=== PATIENT | male | born 1945 | race Caucasian/White ===

== ENCOUNTER → 2017-04-21 | Outpatient (CLI) | payer MEDICARE, OTHER ==
[~2017-04-21] MED LIST: ACET325S8 PO; AMBI10TA PO; AMBI5TAB PO; ASPI81TA82 PO; CARV6.25 PO; CELE200C PO; ECASA81 PO; ENBR50IN2 SQ; ENBR50IN3 SC; FOLI1 PO; FOLI1TAB6 PO; FOLI800T PO; GLUC15009 PO; GLUC500C3 PO; HYDR-3533 PO; HYDR-3583 PO; KRIL1CAP16 PO; LISI-363 PO; LISI-515 PO; MEGA RED PO; METH2.5 PO; METH2.5T PO; NITR0.4S SL; OCUVTAB PO; OPTI400C PO; PLAV75TA PO; PLAV75TA29 PO; ROSU20 PO; ROSU40 PO; SULF500T3 PO; SULF500T35 PO; TYLE325T PO; VIAG50TA PO; WALKER WHEELS/F1 MIS; ZOFR4TAB3 PO; [UNRECOGNIZED DRUG - OTHER] PO
--- NOTE | 2017-04-21 16:29 | RADRPT ---
EXAM DATE/TIME: 04/21/2017 15:36 [facility] COMPARISON: No previous studies available for comparison. INDICATIONS : Evaluate for pneumothorax, pneumonia or communicable disease. Pre-op, cervical spine fusion. MEDICAL HISTORY : Hypertension. Hypercholesterolemia. Cardiovascular disease. SURGICAL HISTORY : Cholecystectomy. Cardiac stent ENCOUNTER: Initial ACUITY: 1 day PAIN SCORE: 0/10 LOCATION: Bilateral chest FINDINGS: PA and lateral views of the chest demonstrate a normal-sized cardiac silhouette. There is no effusion , consolidation, or pneumothorax. The bones and soft tissues demonstrate no acute abnormality. CONCLUSION: No acute cardiopulmonary abnormality is identified. Stanislaw Schafer MD on April 21, 2017 at 16:27 Board Certified Radiologist. This report was verified electronically.
== END ==
LOC: CPRE 14:32
PROVIDERS: ATTEND Neurological Surgery
DX: Z01.812 Encounter for preprocedural laboratory examination (principal); Z01.811 Encounter for preprocedural respiratory examination; Z01.818 Encounter for other preprocedural examination; M79.609 Pain in unspecified limb
CPT/HCPCS: 71046; 87640; 87641

== ENCOUNTER 2017-05-04 20:25 | Emergency (ER) | payer MEDICARE, OTHER ==
[~2017-05-04] VITALS: Ht 182.9 cm; Wt 112.0 kg
[~2017-05-04 20:25] MED LIST changes: -ACET325S8 PO; -AMBI10TA PO; -ASPI81TA82 PO; -CELE200C PO; -ECASA81 PO; -ENBR50IN3 SC; -FOLI1 PO; -FOLI800T PO; -GLUC500C3 PO; -HYDR-3533 PO; -KRIL1CAP16 PO; -LISI-363 PO; -MEGA RED PO; -METH2.5 PO; -OCUVTAB PO; -OPTI400C PO; -PLAV75TA PO; -PLAV75TA29 PO; -ROSU20 PO; -ROSU40 PO; -SULF500T35 PO; -ZOFR4TAB3 PO; -[UNRECOGNIZED DRUG - OTHER] PO
[2017-05-04 20:35] VITALS: BP 127/69; PULSE 105; RESP 20; TEMP 98; O2SAT 97
[2017-05-04] MEDS ORDERED: PLAV75TA29 PO (21:16)
[2017-05-04 23:28] LABS: BILIRUBIN, URINE NEG (NEG); BLOOD, URINE NEG (NEG); GLUCOSE,URINE NEG (NEG); KETONE, URINE TRACE mg/dL (NEG); NITRITE,URINE NEG (NEG); PH, URINE 5.5 (5.0-8.5); URINE LEUKOCYTE ESTERASE NEG (NEG)
[2017-05-04 23:31] LABS: AUTOMATED NEUTROPHIL # 10.6 TH/MM3 (1.8-7.7); BASOPHIL # 0.6 TH/MM3 (0-0.2); BASOPHIL % 4.1 % (0.0-2.0); EOSINOPHIL % 0.2 % (0.0-4.0); HEMATOCRIT 42.8 % (39.0-51.0); HEMOGLOBIN 14.2 GM/DL (13.0-17.0); LYMPHOCYTE # 1.7 TH/MM3 (1.0-4.8); MEAN CELL VOLUME 95.6 FL (80.0-100.0); MEAN CORPUSCULAR HEMOGLOBIN 31.6 PG (27.0-34.0); MEAN CORPUSCULAR HGB CONC 33.1 % (32.0-36.0); MEAN PLATELET VOLUME 7.7 FL (7.0-11.0); MONO % 6.6 % (0.0-8.0); MONOCYTE # 0.9 TH/MM3 (0-0.9); NEUT % 77.1 % (16.0-70.0); PLATELET COUNT 332 TH/MM3 (150-450); RED BLOOD COUNT 4.48 MIL/MM3 (4.50-5.90); RED CELL DISTRIBUTION WIDTH 12.3 % (11.6-17.2); WHITE BLOOD COUNT 13.8 TH/MM3 (4.0-11.0)
[2017-05-04 23:32] VITALS: BP 105/67; PULSE 85; RESP 18; O2SAT 97
[2017-05-04 23:34] LABS: RBC, URINE 0-2 /hpf (0-3); SQUAMOUS EPITHELIAL CELL URINE 0-5 /hpf (0-5); URINE COLOR AMBER (YELLW/STRAW); WBC, URINE 0-2 /hpf (0-5)
[2017-05-04 23:41] LABS: CALCIUM 8.6 MG/DL (8.5-10.1)
[2017-05-04 23:42] LABS: BICARBONATE 23.3 MEQ/L (21.0-32.0)
[2017-05-04 23:45] LABS: CREATININE 0.84 MG/DL (0.60-1.30)
--- NOTE | 2017-05-05 00:03 | PD ---
HPI Chief Complaint: GI Complaint Time Seen by Provider: 22:48 Travel History International Travel<30 days: No Contact w/Intl Traveler<30days: No Traveled to known affect area: No History of Present Illness HPI The patient is a 71-year-old male that has been unable to urinate since 7 AM. He also has had constipation and his stride fleets enemas 2 at home, one at 5 PM and 1 at 6 PM. He has never had inability to urinate in the past. He does not have a history of benign prostatic hypertrophy. He has never seen a urologist. He did take Dulcolax tablets yesterday as well. He had a cervical fusion on the and has been taking hydrocodone tablets. He states he feels like his bladder is going to explode. The patient does not have a history of nocturia, straining to urinate or any other prostate symptoms. His PSAs have been normal. 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, 1 stent) High Cholesterol: Yes Chest Pain: Yes ([place] in july 2004) Congestive Heart Failure: No Coronary Artery Disease: Yes Diabetes: No Endocrine: No Genitourinary: No Headaches: Yes Hepatitis: No Hiatal Hernia: No Hypertension: Yes (PT STATES ON 05/03/15 "NEVER DIAGNOSED WITH IT") Immune Disorder: Yes (PSORIATIC ARTHRITIS) Implanted Vascular Access Dvce: Yes Medical other: No Musculoskeletal: Yes (ARTHRITIS) Neurologic: Yes (BILAT WEAKNESS/TINGLING/NUMBNESS ARMS & LEGS) Psychiatric: No Reproductive: No Respiratory: No Myocardial Infarction: Yes (JULY 2004) Pancreatitis: Yes Sickle Cell Disease: No Thyroid Disease: No Influenza Vaccination: Yes Past Surgical History Abdominal Surgery: Yes ([facility] about 25 years ago) AICD: No Body Medical Devices: stent cardiac Cardiac Surgery: Yes (STENT IN HEART) Cholecystectomy: Yes Coronary Stent: Yes (X1: 2004) Ear Surgery: No Endocrine Surgery: No Eye Surgery: Yes (R eye, debree removed) Genitourinary Surgery: No Joint Replacement: No Neurologic Surgery: Yes (DR CROWLEY: C3-C4 TITANIUM PLACED, BONE CADAVER 04/24/17) Oral Surgery: Yes (tooth extraction with section of bone, no post putin) Pacemaker: No Thoracic Surgery: No Other Surgery: Yes (SKIN) Social History Alcohol Use: Yes (RARELY) Tobacco Use: No (QUIT: 2000) Substance Use: No Allergies-Medications (Allergen,Severity, Reaction): Coded Allergies: No Known Allergies (Unverified Allergy, Unknown, 05/04/17) Reported Meds & Prescriptions Reported Meds & Active Scripts Active Hydrocodone-Acetamin 10-325 mg (Hydrocodone/Acetaminophen) 10 Mg-325 Mg Tablet 1 Tab PO Q4H PRN Walker with Front Wheels (Device) 1 Mis Mis Ea .XX DIRECTED Reported Plavix (Clopidogrel Bisulfate) 75 Mg Tab 75 Mg PO DAILY Tylenol (Acetaminophen) 325 Mg Tab 325-650 Mg PO ONCE Folic Acid 1 Mg Tablet 1 Tab PO DAILY Viagra (Sildenafil Citrate) 50 Mg Tab 50 Mg PO DAILY PRN Enbrel PF Inj (Etanercept) 50 mg/ml Syr 50 Mg SQ Q7D Methotrexate 2.5 Mg Tab 7 Tab PO Q7D MONDAY OR MONDAY MORNING Glucosamine 1,500 Mg Tab 1,500 Mg PO BID Nitrostat SL (Nitroglycerin) 0.4 Mg Subl 0.4 Mg SL DIRECTED PRN 1 tablet under the tongue as needed for chest pain. Repeat every 5 minutes for a total of 3 DOSES or call 911 if NO relief. Ambien (Zolpidem Tartrate) 5 Mg Tab 5 Mg PO HS PRN Sulfasalazine 500 Mg Tab 1,500 Mg PO BID Lisinopril 20 Mg Tab 20 Mg PO HS Coreg (Carvedilol) 6.25 Mg Tab 6.25 Mg PO BID Review of Systems Except as stated in HPI: all other systems reviewed are Neg Physical Exam Narrative GENERAL: The patient is alert, oriented 3 in moderate to severe distress with his bladder discomfort. His vital signs show heart rate of 105 but are otherwise normal. SKIN: Focused skin assessment warm/dry. No skin rash is seen except some redness around the rectum. HEAD: Atraumatic. Normocephalic. EYES: Pupils equal and round. No scleral icterus. No injection or drainage. ENT: No nasal bleeding or discharge. Mucous membranes pink and moist. NECK: Trachea midline. No JVD. CARDIOVASCULAR: Regular rate and rhythm. No murmur appreciated. RESPIRATORY: No accessory muscle use. Clear to auscultation. Breath sounds equal bilaterally. GASTROINTESTINAL: Abdomen soft, non-tender, nondistended. Hepatic and splenic margins not palpable. No guarding or rebound is present. The bladder is grossly distended and minimal causes pressure over the bladder discomfort. MUSCULOSKELETAL: No obvious deformities. No clubbing. No cyanosis. No edema. NEUROLOGICAL: Awake and alert. No obvious cranial nerve deficits. Motor grossly within normal limits. Normal speech. PSYCHIATRIC: Appropriate mood and affect; insight and judgment normal. RECTAL EXAM: The stool is brown and guaiac negative. There are fecal impactions present in the rectum and these were broken up. The patient will now get a fleets enema. Data Data Last Documented VS Vital Signs Date Time Temp Pulse Resp B/P (MAP) Pulse Ox O2 Delivery O2 Flow Rate FiO2 05/04/17 23:32 85 18 105/67 (80) 97 Room Air 05/04/17 20:35 98.0 Orders Orders Urinary Catheter Insert/Apply (05/04/17 22:52) Complete Blood Count With Diff (05/04/17 22:53) Basic Metabolic Panel (Bmp) (05/04/17 22:53) Urinalysis - C+S If Indicated (05/04/17 22:53) Fleets Enema (Adult) (Fleets Enema (Adul (05/05/17 00:15) Labs Laboratory Tests Test 05/04/17 23:00 05/04/17 23:10 Urine Color MINOO Urine Turbidity CLEAR Urine pH 5.5 Urine Specific [place] 1.025 Urine Protein NEG mg/dL Urine Glucose (UA) NEG mg/dL Urine Ketones TRACE mg/dL Urine Occult Blood NEG Urine Nitrite NEG Urine Bilirubin NEG Urine Urobilinogen 0.2 MG/DL Urine Leukocyte Esterase NEG Urine RBC 0-2 /hpf Urine WBC 0-2 /hpf Urine Squamous Epithelial Cells 0-5 /hpf Urine Bacteria NONE /hpf Microscopic Urinalysis Comment CULT NOT INDICATED White Blood Count 13.8 TH/MM3 Red Blood Count 4.48 MIL/MM3 Hemoglobin 14.2 GM/DL Hematocrit 42.8 % Mean Corpuscular Volume 95.6 FL Mean Corpuscular Hemoglobin 31.6 PG Mean Corpuscular Hemoglobin Concent 33.1 % Red Cell Distribution Width 12.3 % Platelet Count 332 TH/MM3 Mean Platelet Volume 7.7 FL Neutrophils (%) (Auto) 77.1 % Lymphocytes (%) (Auto) 12.0 % Monocytes (%) (Auto) 6.6 % Eosinophils (%) (Auto) 0.2 % Basophils (%) (Auto) 4.1 % Neutrophils # (Auto) 10.6 TH/MM3 Lymphocytes # (Auto) 1.7 TH/MM3 Monocytes # (Auto) 0.9 TH/MM3 Eosinophils # (Auto) 0.0 TH/MM3 Basophils # (Auto) 0.6 TH/MM3 CBC Comment DIFF FINAL Differential Comment Blood Urea Nitrogen 24 MG/DL Creatinine 0.84 MG/DL Random Glucose 114 MG/DL Calcium Level 8.6 MG/DL Sodium Level 140 MEQ/L Potassium Level 3.3 MEQ/L Chloride Level 108 MEQ/L Carbon Dioxide Level 23.3 MEQ/L Anion Gap 9 MEQ/L Estimat Glomerular Filtration Rate 90 ML/MIN MDM Medical Decision Making Medical Screen Exam Complete: Yes Emergency Medical Condition: Yes Medical Record Reviewed: Yes Interpretation(s) The CBC shows a white count of 13,800 but is otherwise unremarkable. The basic metabolic profile shows a BUN of 24 and potassium of 3.3 but is otherwise normal. The urinalysis shows minoo color with trace ketones but is otherwise normal and cultures not indicated. After catheterization, the patient had 1000 cc of urine in his bladder. Differential Diagnosis Bladder atony, constipation, urethral obstruction, fecal impaction Narrative Course The patient may have had bladder atony. The combination of surgery, medications like hydrocodone may have caused this. He also might have prosthetic urethral obstruction. He has never had this problem before however. The patient also may have some constipation related to the narcotic pain medications slight surgery. It is now 0104 and the patient has passed stool and has passed 1000 cc of urine into the catheter. Diagnosis Primary Impression: Bladder atony Additional Impression: Constipation Additional Instructions: As we discussed, call today to set up an appointment with urology. They will likely take the catheter out at the time of the appointment. Disposition: 01 DISCHARGE HOME Condition: Stable Jose Durbin MD May 05, 2017 00:03
[2017-05-05] MEDS ORDERED: SOD PHOSPHATE/SOD BIPHOSPHATE (ADULT) ENEMA 133ML RECTAL ONE (00:15)
[2017-05-05 00:58] VITALS: BP 114/70; PULSE 90; RESP 16; O2SAT 96
== END 2017-05-05 02:03 | disposition home or self-care (01) ==
LOC: PHED 20:25
DX: N31.2 Flaccid neuropathic bladder, not elsewhere classified (principal); K59.00 Constipation, unspecified; I10 Essential (primary) hypertension; I25.10 Atherosclerotic heart disease of native coronary artery without angina pectoris; Z79.02 Long term (current) use of antithrombotics/antiplatelets; Z87.891 Personal history of nicotine dependence
CPT/HCPCS: 51702; 80048; 81001; 85025

== ENCOUNTER 2017-05-12 01:41 | Inpatient (IN) | payer MEDICARE, OTHER ==
[~2017-05-12] VITALS: Ht 182.9 cm; Wt 119.0 kg
[2017-05-12] VITALS (19 sets, daily range): BP systolic 98–148; BP diastolic 45–84; PULSE 43–54; RESP 16–20; TEMP 98.2–101; O2SAT 93–99
[~2017-05-12 01:41] MED LIST changes: +PLAV75TA29 PO
[2017-05-12 02:46] LABS: AUTOMATED NEUTROPHIL # 19.2 TH/MM3 (1.8-7.7); BASOPHIL # 0.3 TH/MM3 (0-0.2); BASOPHIL % 1.2 % (0.0-2.0); HEMATOCRIT 39.1 % (39.0-51.0); HEMOGLOBIN 12.9 GM/DL (13.0-17.0); LYMPH % 3.9 % (9.0-44.0); LYMPHOCYTE # 0.8 TH/MM3 (1.0-4.8); MEAN CELL VOLUME 96.3 FL (80.0-100.0); MEAN CORPUSCULAR HEMOGLOBIN 31.8 PG (27.0-34.0); MEAN PLATELET VOLUME 7.9 FL (7.0-11.0); MONO % 2.8 % (0.0-8.0); MONOCYTE # 0.6 TH/MM3 (0-0.9); NEUT % 92.1 % (16.0-70.0); PLATELET COUNT 238 TH/MM3 (150-450); RED BLOOD COUNT 4.06 MIL/MM3 (4.50-5.90); RED CELL DISTRIBUTION WIDTH 12.7 % (11.6-17.2)
[2017-05-12 02:52] LABS: CHLORIDE 107 MEQ/L (98-107); SODIUM (NA) 138 MEQ/L (136-145)
[2017-05-12 02:55] LABS: ALBUMIN 2.9 GM/DL (3.4-5.0); BICARBONATE 22.6 MEQ/L (21.0-32.0); CALCIUM 8.6 MG/DL (8.5-10.1); GLUCOSE,RANDOM 183 MG/DL (74-106)
[2017-05-12 02:56] LABS: BLOOD UREA NITROGEN 25 MG/DL (7-18)
[2017-05-12 02:58] LABS: ALT (GPT) 23 U/L (12-78); AST (GOT) 18 U/L (15-37)
[2017-05-12 02:59] LABS: GLOMERULAR FILTRATION RATE 50 ML/MIN (>89)
[2017-05-12 03:00] LABS: TOTAL BILIRUBIN ADULT 0.9 MG/DL (0.2-1.0); TOTAL PROTEIN 6.7 GM/DL (6.4-8.2)
[2017-05-12 03:01] LABS: ALKALINE PHOSPHATASE 84 U/L (45-117)
[2017-05-12 03:03] LABS: TROPONIN I LESS THAN 0.02 NG/ML (0.02-0.05)
--- NOTE | 2017-05-12 04:27 | PD ---
HPI Chief Complaint: General Weakness Time Seen by Provider: 04:15 Travel History International Travel<30 days: No Contact w/Intl Traveler<30days: No Traveled to known affect area: No History of Present Illness HPI The patient is a 71-year-old male that yesterday afternoon started with a fever and generalized weakness. At home, the fever was 103.5. He denies any cough. The patient came in last week with a hydrocodone induced bladder atony and required catheterization. He saw Dr. Tipton in another catheter was put in and removed. He denies any flank pain but does have frequency of urination now. He was put on Flomax but this was discontinued 2 days ago when the catheter came out. 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, 1 stent) High Cholesterol: Yes Chest Pain: Yes ([place] in july 2004) Congestive Heart Failure: No Coronary Artery Disease: Yes Diabetes: No Diminished Hearing: No Endocrine: No Genitourinary: No Headaches: Yes Hepatitis: No Hiatal Hernia: No Hypertension: Yes (PT STATES ON 05/03/15 "NEVER DIAGNOSED WITH IT") Immune Disorder: Yes (PSORIATIC ARTHRITIS) Implanted Vascular Access Dvce: Yes Musculoskeletal: Yes (ARTHRITIS) Neurologic: Yes (BILAT WEAKNESS/TINGLING/NUMBNESS ARMS & LEGS) Psychiatric: No Reproductive: No Respiratory: No Immunizations Current: Yes Myocardial Infarction: Yes (JULY 2004) Pancreatitis: Yes Sickle Cell Disease: No Thyroid Disease: No Tetanus Vaccination: < 5 Years Past Surgical History Abdominal Surgery: Yes ([facility] about 25 years ago) AICD: No Body Medical Devices: stent cardiac Cardiac Surgery: Yes (STENT IN HEART) Cholecystectomy: Yes Coronary Stent: Yes (X1: 2004) Ear Surgery: No Endocrine Surgery: No Eye Surgery: Yes (R eye, debree removed) Genitourinary Surgery: No Joint Replacement: No Neurologic Surgery: Yes (DR CROWLEY: C3-C4 TITANIUM PLACED, BONE CADAVER 04/24/17) Oral Surgery: Yes (tooth extraction with section of bone, no post putin) Pacemaker: No Thoracic Surgery: No Other Surgery: Yes (SKIN) Social History Alcohol Use: Yes (RARELY) Tobacco Use: No (QUIT: 2000) Substance Use: No Allergies-Medications (Allergen,Severity, Reaction): Coded Allergies: No Known Allergies (Unverified Allergy, Unknown, 05/12/17) Reported Meds & Prescriptions Reported Meds & Active Scripts Active Reported Tylenol (Acetaminophen) 325 Mg Tab 325-650 Mg PO ONCE Folic Acid 1 Mg Tablet 1 Tab PO DAILY Viagra (Sildenafil Citrate) 50 Mg Tab 50 Mg PO DAILY PRN Enbrel PF Inj (Etanercept) 50 mg/ml Syr 50 Mg SQ Q7D Methotrexate 2.5 Mg Tab 7 Tab PO Q7D MONDAY OR MONDAY MORNING Nitrostat SL (Nitroglycerin) 0.4 Mg Subl 0.4 Mg SL DIRECTED PRN 1 tablet under the tongue as needed for chest pain. Repeat every 5 minutes for a total of 3 DOSES or call 911 if NO relief. Ambien (Zolpidem Tartrate) 5 Mg Tab 5 Mg PO HS PRN Sulfasalazine 500 Mg Tab 1,500 Mg PO BID Lisinopril 20 Mg Tab 20 Mg PO HS Coreg (Carvedilol) 6.25 Mg Tab 6.25 Mg PO BID Review of Systems Except as stated in HPI: all other systems reviewed are Neg Physical Exam Narrative GENERAL: The patient is alert, oriented 3 in slight apparent distress with his generalized weakness. His temperature is 99.2 with heart rate of 44 and oximetry 94% and his blood pressure is normal. SKIN: Focused skin assessment warm/dry. No skin rash is seen. HEAD: Atraumatic. Normocephalic. EYES: Pupils equal and round. No scleral icterus. No injection or drainage. ENT: No nasal bleeding or discharge. Mucous membranes pink and moist. Throat is clear and tympanic membranes are clear. NECK: Trachea midline. No JVD. He has a cervical collar on because of cervical stenosis. CARDIOVASCULAR: Regular rate and rhythm. No murmur appreciated. RESPIRATORY: No accessory muscle use. Clear to auscultation. Breath sounds equal bilaterally. GASTROINTESTINAL: Abdomen soft, non-tender, nondistended. Hepatic and splenic margins not palpable. There is no flank tenderness present and there is no guarding or rebound present. MUSCULOSKELETAL: No obvious deformities. No clubbing. No cyanosis. No edema. NEUROLOGICAL: Awake and alert. No obvious cranial nerve deficits. Motor grossly within normal limits. Normal speech. PSYCHIATRIC: Appropriate mood and affect; insight and judgment normal. Data Data Last Documented VS Vital Signs Date Time Temp Pulse Resp B/P (MAP) Pulse Ox O2 Delivery O2 Flow Rate FiO2 05/12/17 06:13 50 16 142/49 (80) 64 123/57 (79) 49 147/84 (105) 05/12/17 05:58 95 Room Air 05/12/17 04:36 98.2 Orders Orders Complete Blood Count With Diff (05/12/17 02:24) Comprehensive Metabolic Panel (05/12/17 02:24) Troponin I (05/12/17 02:24) Electrocardiogram (05/12/17 ) Urinalysis - C+S If Indicated (05/12/17 02:52) Influenzae A/B Antigen (05/12/17 02:52) Lactic Acid Sepsis Protocol (05/12/17 04:15) Blood Culture (05/12/17 04:15) Sodium Chlor 0.9% 1000 Ml Inj (Ns 1000 M (05/12/17 04:30) Chest, Pa & Lat (05/12/17 04:27) Orthostatic Vital Signs (05/12/17 05:49) Ceftriaxone Inj (Rocephin Inj) (05/12/17 06:30) Azithromycin Inj (Zithromax Inj) (05/12/17 06:30) Urine Culture (05/12/17 06:10) Labs Laboratory Tests Test 05/12/17 02:30 05/12/17 04:20 05/12/17 06:10 White Blood Count 21.0 TH/MM3 Red Blood Count 4.06 MIL/MM3 Hemoglobin 12.9 GM/DL Hematocrit 39.1 % Mean Corpuscular Volume 96.3 FL Mean Corpuscular Hemoglobin 31.8 PG Mean Corpuscular Hemoglobin Concent 33.0 % Red Cell Distribution Width 12.7 % Platelet Count 238 TH/MM3 Mean Platelet Volume 7.9 FL Neutrophils (%) (Auto) 92.1 % Lymphocytes (%) (Auto) 3.9 % Monocytes (%) (Auto) 2.8 % Eosinophils (%) (Auto) 0.0 % Basophils (%) (Auto) 1.2 % Neutrophils # (Auto) 19.2 TH/MM3 Lymphocytes # (Auto) 0.8 TH/MM3 Monocytes # (Auto) 0.6 TH/MM3 Eosinophils # (Auto) 0.0 TH/MM3 Basophils # (Auto) 0.3 TH/MM3 CBC Comment DIFF FINAL Differential Comment Blood Urea Nitrogen 25 MG/DL Creatinine 1.40 MG/DL Random Glucose 183 MG/DL Total Protein 6.7 GM/DL Albumin 2.9 GM/DL Calcium Level 8.6 MG/DL Alkaline Phosphatase 84 U/L Aspartate Amino Transf (AST/SGOT) 18 U/L Alanine Aminotransferase (ALT/SGPT) 23 U/L Total Bilirubin 0.9 MG/DL Sodium Level 138 MEQ/L Potassium Level 3.5 MEQ/L Chloride Level 107 MEQ/L Carbon Dioxide Level 22.6 MEQ/L Anion Gap 8 MEQ/L Estimat Glomerular Filtration Rate 50 ML/MIN Troponin I LESS THAN 0.02 NG/ML Lactic Acid Level 2.5 mmol/L Urine Color MINOO Urine Turbidity CLOUDY Urine pH 5.0 Urine Specific [place] GREATER/EQUAL 1.030 Urine Protein 300 OR GREATER mg/dL Urine Glucose (UA) 100 mg/dL Urine Ketones TRACE mg/dL Urine Occult Blood SMALL Urine Nitrite POS Urine Bilirubin MOD Urine Urobilinogen 1.0 MG/DL Urine Leukocyte Esterase SMALL Urine RBC 4-9 /hpf Urine WBC INNUM /hpf Urine WBC Clumps FEW Urine Squamous Epithelial Cells 6-8 /hpf Urine Bacteria MANY /hpf Microscopic Urinalysis Comment CULTURE INDICATED MDM Medical Decision Making Medical Screen Exam Complete: Yes Emergency Medical Condition: Yes Medical Record Reviewed: Yes Interpretation(s) The chest x-ray shows patchy consolidation in the right anterior middle lobe or lingula only seen on the lateral view. The CBC shows white count of 21,000 with 92% neutrophils. The complete metabolic profile shows a BUN of 25, creatinine 1.4, GFR 50, glucose of 183 with lactic acid of 2.5 and albumin 2.9. The troponin I is less than 0.02. The influenza A/B antigen is negative for flu a and flu B. The urine shows minoo color, cloudy turbidity, 300 or greater protein, 100 glucose, trace ketones with moderate bilirubin and small blood with positive nitrate and small leukocyte esterase and innumerable white cells with few white cell clampings and many bacteria and culture is indicated. Differential Diagnosis Urosepsis, sepsis, dehydration, electrolyte disorder, pneumonia-unlikely Narrative Course The patient almost passed out in x-ray. Apparently, he fell to the floor and had to be picked up. He did not injure himself during the fall. Because of the patient's slight renal insufficiency we gave him Rocephin and Zithromax. The patient will be admitted to Dr. Jamil. Sepsis Criteria SIRS Criteria (2 or more): WBC > 51336, < 4000 or > 10% bands Diagnosis Primary Impression: Sepsis Additional Impressions: Urinary tract infection Right middle lobe pneumonia Admitting Information Admitting Physician Requests: Admit Jose Durbin MD May 12, 2017 04:27
[2017-05-12] MEDS: SODIUM CHLOR 0.9% 1000 ML INJ 1,000 ML IV SCH ×5 (04:34→20:28)
[2017-05-12 04:59] LABS: LACTIC ACID SEPSIS PROTOCOL 2.5 mmol/L (0.4-2.0)
--- NOTE | 2017-05-12 05:20 | RADRPT ---
EXAM DATE/TIME: 05/12/2017 04:34 [facility] COMPARISON: CHEST PA & LAT, April 21, 2017, 15:36. INDICATIONS : Weakness. Fever. MEDICAL HISTORY : Cardiovascular disease. SURGICAL HISTORY : Coronary artery stent. ENCOUNTER: Initial ACUITY: 2 days PAIN SCORE: 0/10 LOCATION: chest FINDINGS: PA and lateral views of the chest. Mild linear opacity at the lung bases suggesting atelectasis on th e frontal view. Patchy consolidation versus atelectasis in the anterior lung base on the lateral view . This finding is new. No evidence of pleural effusion or pneumothorax. Cardiomediastinal silhouette within normal limits. CONCLUSION: Patchy consolidation versus atelectasis in the anterior right middle lobe or lingula seen on the late ral view. Vasyl Diamond MD on May 12, 2017 at 5:15 Board Certified Radiologist. This report was verified electronically.
[2017-05-12] MEDS ORDERED: LEVOFLOXACIN 750 MG PREMIX INJ 150 ML IV ONE (06:15)
[2017-05-12 06:17] LABS: BILIRUBIN, URINE MOD (NEG); BLOOD, URINE SMALL (NEG); GLUCOSE,URINE 100 mg/dL (NEG); KETONE, URINE TRACE mg/dL (NEG); NITRITE,URINE POS (NEG); URINE LEUKOCYTE ESTERASE SMALL (NEG)
[2017-05-12 06:19] LABS: URINE COLOR AMBER (YELLW/STRAW)
[2017-05-12 06:21] LABS: WBC, URINE INNUM /hpf (0-5)
[2017-05-12 06:22] LABS: WHITE BLOOD CELL CLUMPS FEW
[2017-05-12 06:23] LABS: BACTERIA, URINE MANY /hpf
[2017-05-12] MEDS ORDERED: cefTRIAXone INJ 1,000 MG in SODIUM CHLORIDE 0.9% INJ 100 ML IV ONE (06:30)
[2017-05-12] MEDS ORDERED: AZITHROMYCIN INJ 500 MG in SODIUM CHLOR 0.9% 250 ML INJ 250 ML IV ONE (06:30)
[2017-05-12] MEDS ORDERED: RESP: ALBUTEROL 2.5 MG/IPRATROPIUM 0.5 MG NEB (PRN) INH (06:45)
[2017-05-12] MEDS ORDERED: SODIUM CHLORIDE 0.9% FLUSH 10 ML FLUSH IV FLUSH PRN (06:45)
[2017-05-12] MEDS ORDERED: ONDANSETRON HCL 4 MG/2 ML VIAL IV PUSH PRN (06:45)
[2017-05-12] MEDS ORDERED: HEPARIN SODIUM - SQ 10,000 UNITS/ML VIAL SQ SCH (07:30)
--- NOTE | 2017-05-12 08:45 | HHI.HP ---
[facility]Staff Admission Diagnosis Sepsis, urinary tract infection, right middle lobe pneumonia Diagnoses: (1) Sepsis (2) Urinary tract infection (3) Right middle lobe pneumonia Chief Complaint: Generalized weakness and subjective fever Travel History International Travel<30 Days: No Contact w/Intl Traveler <30 Da: No Traveled to Known Affected Are: No Sepsis Criteria SIRS Criteria (2 or more): WBC > 50307, < 4000 or > 10% bands Sepsis Criteria (SIRS+source): Infect source susp/known History of Present Illness This is a pleasant 71-year-old male patient with a known medical history of CAD with history of ND and cardiac stent placement, hyperlipidemia, hypertension who presented to the ED with complaints of generalized weakness and fever. Patient with subjective fever 103.5 at home. He states that over the past 2 days he has been increasingly fatigued and generally weak. Supposedly patient presented to the ED last week with hydrocodone induced bladder atony and required catheterization, patient kept the catheter in for 5 days and was last seen with Dr. Tipton on Monday in the office when the Weaver catheter was removed and Flomax was discontinued. Patient states that over the past few days he has been having urinary frequency. Denies any dysuria or flank pain. It should be noted that patient underwent a C3-C4 ACDF with resection of a posterior osteophytic disc complex surgery on 04/24/[address] Fontaine and has been following in his office. Review of Systems Constitutional: COMPLAINS OF: Fatigue, Fever, Chills Eyes: DENIES: Blurred vision, Diplopia Respiratory: DENIES: Cough, Sputum production, Shortness of breath Cardiovascular: DENIES: Chest pain, Palpitations Gastrointestinal: COMPLAINS OF: Nausea, DENIES: Abdominal pain, Black stools, Bloody stools, Constipation, Diarrhea, Vomiting Genitourinary: COMPLAINS OF: Urinary frequency, Urgency, Dysuria Musculoskeletal: DENIES: Joint pain Psychiatric: DENIES: Anxiety Except as stated in HPI: all other systems reviewed are Neg Past Family Social History Past Medical History CAD with history of cardiac stent placement Left ear skin cancer Hyperlipidemia Migraine headaches Hypertension Arthritis Past Surgical History Cholecystectomy History of cardiac stents Right IJ debridement C3-C4 titanium rods placed and specified surgery Tooth extraction Reported Medications Active Reported Tylenol (Acetaminophen) 325 Mg Tab 325-650 Mg PO ONCE Folic Acid 1 Mg Tablet 1 Tab PO DAILY Viagra (Sildenafil Citrate) 50 Mg Tab 50 Mg PO DAILY PRN Enbrel PF Inj (Etanercept) 50 mg/ml Syr 50 Mg SQ Q7D Methotrexate 2.5 Mg Tab 7 Tab PO Q7D MONDAY OR MONDAY MORNING Nitrostat SL (Nitroglycerin) 0.4 Mg Subl 0.4 Mg SL DIRECTED PRN 1 tablet under the tongue as needed for chest pain. Repeat every 5 minutes for a total of 3 DOSES or call 911 if NO relief. Ambien (Zolpidem Tartrate) 5 Mg Tab 5 Mg PO HS PRN Sulfasalazine 500 Mg Tab 1,500 Mg PO BID Lisinopril 20 Mg Tab 20 Mg PO HS Coreg (Carvedilol) 6.25 Mg Tab 6.25 Mg PO BID Allergies: Coded Allergies: No Known Allergies (Unverified Allergy, Unknown, 05/12/17) Active Ordered Medications Current Medications Medications (Trade) Dose Ordered Sig/[place] Route Start Time Stop Time Status Last Admin Sodium Chloride 1,000 ml @ 100 mls/hr Q10H IV 05/12/17 06:44 05/12/17 07:55 (NS Flush) 2 ml UNSCH PRN IV FLUSH 05/12/17 06:45 (NS Flush) 2 ml BID IV FLUSH 05/12/17 09:00 Ceftriaxone Sodium 1000 mg/ Sodium Chloride 100 ml @ 200 mls/hr Q24H IV 05/13/17 05:00 Azithromycin 500 mg/Sodium Chloride 250 ml @ 250 mls/hr Q24H IV 05/13/17 06:00 (Tylenol) 650 mg Q4H PRN PO 05/12/17 06:45 (Zofran Inj) 4 mg Q6H PRN IV PUSH 05/12/17 06:45 (Duoneb Neb) 1 ampule Q6HR NEB INH 05/12/17 10:00 (Duoneb Neb) 1 ampule Q4HR NEB PRN INH 05/12/17 06:45 (Heparin Inj) 5,000 units Q8HR SQ 05/12/17 07:30 Family History Paternal medical history significant for unspecified cancer. Mother had Alzheimer's and in her 60s. Social History Patient denies any current tobacco use, alcohol or illicit drug use. Physical Exam Vital Signs Vital Signs Date Time Temp Pulse Resp B/P (MAP) Pulse Ox O2 Delivery O2 Flow Rate FiO2 05/12/17 08:15 99.8 44 18 128/58 (81) 98 05/12/17 07:48 44 16 127/52 (77) 96 05/12/17 06:55 46 18 96 Room Air 05/12/17 06:39 99.5 49 16 136/50 (78) 95 Room Air 05/12/17 06:13 50 16 142/49 (80) 64 123/57 (79) 49 147/84 (105) 05/12/17 05:58 45 16 142/74 (96) 95 Room Air 05/12/17 05:03 46 16 143/67 (92) 99 Room Air 05/12/17 04:36 98.2 44 16 116/58 (77) 95 Room Air 05/12/17 03:21 48 16 119/45 (69) 98 Room Air 05/12/17 02:09 98.6 43 18 130/67 (88) 96 05/12/17 01:48 99.2 44 20 133/62 (85) 94 Physical Exam GENERAL: Well-developed, well-nourished patient in [facility]. SKIN: Warm and dry. No rash. HEAD: Normocephalic. Atraumatic. EYES: Pupils equal and round. No scleral icterus. No injection or drainage. ENT: No nasal bleeding or discharge. Mucous membranes pink and moist. NECK: Supple. Trachea midline. CARDIOVASCULAR: Regular rate and rhythm. S1, S2 noted. No murmur appreciated. RESPIRATORY: No accessory muscle use. Clear to auscultation. Breath sounds equal bilaterally. GASTROINTESTINAL: Abdomen soft, non-tender, nondistended. Normoactive bowel sounds x4. MUSCULOSKELETAL: No obvious deformities. Extremities without clubbing, cyanosis , or edema. NEUROLOGICAL: Awake and alert. No obvious cranial nerve deficits. Motor grossly within normal limits. 5/5 muscle strength in bilateral upper and lower extremities. Normal speech. PSYCHIATRIC: Appropriate mood and affect; insight and judgment normal. Laboratory Laboratory Tests Test 05/12/17 02:30 05/12/17 04:20 05/12/17 06:10 05/12/17 06:55 White Blood Count 21.0 Red Blood Count 4.06 Hemoglobin 12.9 Hematocrit 39.1 Mean Corpuscular Volume 96.3 Mean Corpuscular Hemoglobin 31.8 Mean Corpuscular Hemoglobin Concent 33.0 Red Cell Distribution Width 12.7 Platelet Count 238 Mean Platelet Volume 7.9 Neutrophils (%) (Auto) 92.1 Lymphocytes (%) (Auto) 3.9 Monocytes (%) (Auto) 2.8 Eosinophils (%) (Auto) 0.0 Basophils (%) (Auto) 1.2 Neutrophils # (Auto) 19.2 Lymphocytes # (Auto) 0.8 Monocytes # (Auto) 0.6 Eosinophils # (Auto) 0.0 Basophils # (Auto) 0.3 CBC Comment DIFF FINAL Differential Comment Blood Urea Nitrogen 25 Creatinine 1.40 Random Glucose 183 Total Protein 6.7 Albumin 2.9 Calcium Level 8.6 Alkaline Phosphatase 84 Aspartate Amino Transf (AST/SGOT) 18 Alanine Aminotransferase (ALT/SGPT) 23 Total Bilirubin 0.9 Sodium Level 138 Potassium Level 3.5 Chloride Level 107 Carbon Dioxide Level 22.6 Anion Gap 8 Estimat Glomerular Filtration Rate 50 Troponin I LESS THAN 0.02 Lactic Acid Level 2.5 1.9 Urine Color SOREN Urine Turbidity CLOUDY Urine pH 5.0 Urine Specific [place] GREATER/EQUAL 1.030 Urine Protein 300 OR GREATER Urine Glucose (UA) 100 Urine Ketones TRACE Urine Occult Blood SMALL Urine Nitrite POS Urine Bilirubin MOD Urine Urobilinogen 1.0 Urine Leukocyte Esterase SMALL Urine RBC 4-9 Urine WBC INNUM Urine WBC Clumps FEW Urine Squamous Epithelial Cells 6-8 Urine Bacteria MANY Microscopic Urinalysis Comment CULTURE INDICATED Date/Time Source Procedure Growth Status 05/12/17 04:20 Blood Peripheral Aerobic Blood Culture Pending Received 05/12/17 04:20 Blood Peripheral Anaerobic Blood Culture Pending Received 05/12/17 03:00 Nasal Washing Influenza Types A,B Antigen (HUGO) - Final NEGATIVE FOR FLU A AND B ANTIGEN.... Complete 05/12/17 06:10 Urine Clean Catch Urine Culture Pending Received Result Diagram: 05/12/17 0230 05/12/17 0230 Imaging Last Impressions Chest X-Ray 05/12/17 9031 Signed Impressions: Service Date/Time: Marquis, May 12, 2017 04:34 - CONCLUSION: Patchy consolidation versus atelectasis in the anterior right middle lobe or lingula seen on the lateral view. Vasyl Diamond MD Septic Shock Reassessment Septic shock perfusion: reassessment completed Caprini VTE Risk Assessment Caprini VTE Risk Assessment: Mod/High Risk (score >= 2) Caprini Risk Assessment Model Point Value = 1 Point Value = 2 Point Value = 3 Point Value = 5 Age 41-60 Minor surgery BMI > 25 kg/m2 Swollen legs Varicose veins or History of unexplained or recurrent spontaneous Oral contraceptives or hormone replacement Sepsis (< 1 month) Serious lung disease, including pneumonia (< 1 month) Abnormal pulmonary function Acute myocardial infarction Congestive heart failure (< 1 month) History of inflammatory bowel disease Medical patient at bed rest Age 61-74 Arthroscopic surgery Major open surgery (> 45 min) Laparoscopic surgery (> 45 min) Malignancy Confined to bed (> 72 hours) Immobilizing plaster cast Central venous access Age >= 75 History of VTE Family history of VTE Factor V Leiden Prothrombin [id number] Lupus anticoagulant Anticardiolipin antibodies Elevated serum homocysteine Heparin-induced thrombocytopenia Other congenital or acquired thrombophilia Stroke (< 1 month) Elective arthroplasty Hip, pelvis, or leg fracture Acute spinal cord injury (< 1 month) Prophylaxis Regimen Total Risk Factor Score Risk Level Prophylaxis Regimen 0-1 Low Early ambulation 2 Moderate Order ONE of the following: *Sequential Compression Device (SCD) *Heparin 5000 units SQ BID 3-4 Higher Order ONE of the following medications: *Heparin 5000 units SQ TID *Enoxaparin/Lovenox 40 mg SQ daily (WT < 150 kg, CrCl > 30 mL/min) *Enoxaparin/Lovenox 30 mg SQ daily (WT < 150 kg, CrCl > 10-29 mL/min) *Enoxaparin/Lovenox 30 mg SQ BID (WT < 150 kg, CrCl > 30 mL/min) AND/OR *Sequential Compression Device (SCD) 5 or more Highest Order ONE of the following medications: *Heparin 5000 units SQ TID (Preferred with Epidurals) *Enoxaparin/Lovenox 40 mg SQ daily (WT < 150 kg, CrCl > 30 mL/min) *Enoxaparin/Lovenox 30 mg SQ daily (WT < 150 kg, CrCl > 10-29 mL/min) *Enoxaparin/Lovenox 30 mg SQ BID (WT < 150 kg, CrCl > 30 mL/min) AND *Sequential Compression Device (SCD) Assessment and Plan Problem List: (1) Sepsis ICD Code: A41.9 - Sepsis, unspecified organism Status: Acute (2) Urinary tract infection ICD Code: N39.0 - Urinary tract infection, site not specified Status: Acute (3) Right middle lobe pneumonia ICD Code: J18.1 - Lobar pneumonia, unspecified organism Status: Acute Assessment and Plan This is a pleasant 71-year-old male patient with a known medical history of CAT with history of ND and cardiac stent placement, hyperlipidemia, hypertension who presented to the ED with complaints of generalized weakness and fever. Sepsis (meets criteria with fever, elevated lactic acid and leukocytosis) secondary to: Urinary tract infection with history of bladder atony and recent Weaver catheter use and Right middle lobe pneumonia - White blood cell 21,000, subjective fevers at home 103.5 and lactic acid 2.5 now 1.9. Abnormal UA. Await urine culture. - Chest x-ray reviewed showing patchy consolidation versus atelectasis in the anterior right middle lobe. - Recent Weaver catheter use for bladder atony. Has resolved with patient urinating. Continue to monitor intake and output. - Patient has been placed on ceftriaxone and azithromycin IV. We will continue to monitor labs. Status post 1 L NS bolus in ED. Continue IVF hydration. Monitor for any fevers. Acetaminophen available. Blood cultures ordered and pending. - Duonebs scheduled and as needed for shortness of breath. - Supplemental O2 as needed, patient comfortable on room air. - Supportive care. Bradycardia, chronic - Patient does have a history of bradycardia. Spoke with his machine sign writer Dr. Benitez who reviewed his record and it has been documented in his office. Will hold beta-rahel for now. - Supposedly patient had an episode this morning in x-ray where he stood up, felt lightheaded and fell to the ground. Did not hit his head nor did he lose consciousness. This could also be secondary to dehydration. We will continue to monitor on cardiac telemetry. EKG reviewed showing bradycardic rhythm. - Orthostatics mildly positive. Will continue to hydrate. - PT ordered for evaluation, appreciate input recommendations. Cervical spinal stenosis Cervical disc disease with myelopathy Recent C3-4 ACDF with resection of a posterior osteophytic disc complex - Continue neck brace. - Avoid anticoagulants x 1 month after surgery (will be 05/24/17) - Supportive care. - Pain control. - PT evaluation and treatment. DVT prophylaxis: SCDs. Will hold chemical prophylaxis due to patient's recent neurological procedure, patient states his doctor wanted him off any anticoagulations for 1 month, was done April 24. Dominique Maldonado May 12, 2017 08:45
--- NOTE | 2017-05-12 08:48 | EKG ---
Date Performed: 05/12/2017 Time Performed: 02:41:40 PTAGE: 71 years EKG: SINUS BRADYCARDIA RIGHT BUNDLE BRANCH BLOCK LEFT ANTERIOR FASCICULAR BLOCK ABNORMAL ECG NO PREVIOUS TRACING DOCTOR: Randal Calderon Interpretating Date/Time 05/12/2017 08:46:37
[2017-05-12] MEDS: SODIUM CHLORIDE 0.9% FLUSH 10 ML FLUSH IV FLUSH SCH ×2 (09:00→20:15)
[2017-05-12] MEDS: RESP: ALBUTEROL 2.5 MG/IPRATROPIUM 0.5 MG NEB (SCH) INH ×3 (09:58→20:46)
[2017-05-12] MEDS: ACETAMINOPHEN 325 MG TAB PO PRN ×2 (15:08→20:30)
[2017-05-12] MEDS: sulfaSALAzine 500 MG TAB PO SCH (20:29)
[2017-05-13] VITALS (8 sets, daily range): BP systolic 120–158; BP diastolic 56–70; PULSE 42–52; RESP 18–20; TEMP 97.4–100; O2SAT 95–99
[2017-05-13] MEDS: cefTRIAXone INJ 1,000 MG in SODIUM CHLORIDE 0.9% INJ 100 ML IV SCH (05:34)
[2017-05-13] MEDS: AZITHROMYCIN INJ 500 MG in SODIUM CHLOR 0.9% 250 ML INJ 250 ML IV SCH (05:35)
[2017-05-13 06:52] LABS: AUTOMATED NEUTROPHIL # 12.9 TH/MM3 (1.8-7.7); BASOPHIL % 0.2 % (0.0-2.0); EOSINOPHIL % 0.2 % (0.0-4.0); HEMATOCRIT 33.6 % (39.0-51.0); HEMOGLOBIN 11.4 GM/DL (13.0-17.0); MEAN CELL VOLUME 97.7 FL (80.0-100.0); MEAN CORPUSCULAR HGB CONC 33.8 % (32.0-36.0); MONO % 7.3 % (0.0-8.0); MONOCYTE # 1.1 TH/MM3 (0-0.9); NEUT % 85.3 % (16.0-70.0); PLATELET COUNT 138 TH/MM3 (150-450); RED BLOOD COUNT 3.44 MIL/MM3 (4.50-5.90); RED CELL DISTRIBUTION WIDTH 13.2 % (11.6-17.2); WHITE BLOOD COUNT 14.9 TH/MM3 (4.0-11.0)
[2017-05-13 07:09] LABS: BICARBONATE 23.4 MEQ/L (21.0-32.0); CALCIUM 7.9 MG/DL (8.5-10.1)
[2017-05-13 07:13] LABS: CREATININE 0.96 MG/DL (0.60-1.30)
[2017-05-13] MEDS: SODIUM CHLORIDE 0.9% FLUSH 10 ML FLUSH IV FLUSH SCH ×2 (07:54→21:19)
[2017-05-13] MEDS: SODIUM CHLOR 0.9% 1000 ML INJ 1,000 ML IV SCH (07:55)
[2017-05-13] MEDS: FOLIC ACID 1 MG TAB PO SCH (07:55)
[2017-05-13] MEDS: sulfaSALAzine 500 MG TAB PO SCH ×2 (07:55→21:19)
[2017-05-13] MEDS ORDERED: METHOTREXATE 2.5 MG TAB PO SCH (09:00)
[2017-05-13] MEDS: RESP: ALBUTEROL 2.5 MG/IPRATROPIUM 0.5 MG NEB (SCH) INH ×3 (10:01→17:58)
[2017-05-13] MEDS ORDERED: ACETAMINOPHEN/HYDROcodone 325 MG/5 MG TAB PO PRN (10:15)
--- NOTE | 2017-05-13 11:32 | HHI.PR ---
Subjective Remarks Follow-up sepsis secondary to UTI and pneumonia. Patient seen and examined, sitting up in chair comfortably eating breakfast. In no apparent distress. States he had a good night, slept well. Afebrile overnight. Vital signs stable. Urinating well, denies any dysuria. Denies any acute events. Continue asymptomatic bradycardia, continued on cardiac telemetry. Denies any dizziness today. Does complain of mild pain postsurgical cervical fusion. Objective Vitals Vital Signs Date Time Temp Pulse Resp B/P (MAP) Pulse Ox O2 Delivery O2 Flow Rate FiO2 05/13/17 07:50 98.3 43 20 134/60 (84) 97 05/13/17 07:28 42 05/13/17 07:01 51 05/13/17 04:00 97.6 46 18 142/64 (90) 97 05/13/17 00:00 98.3 45 18 120/56 (77) 95 05/12/17 20:09 54 05/12/17 20:00 98.4 50 18 148/69 (95) 95 05/12/17 16:34 99.1 05/12/17 16:00 52 20 126/53 (77) 93 05/12/17 15:00 50 05/12/17 13:00 101.0 50 18 142/56 (84) 95 I/O 05/12/17 05/12/17 05/12/17 05/13/17 05/13/17 05/13/17 07:00 15:00 23:00 07:00 15:00 23:00 Intake Total 2100 ml 590 ml 1057 ml 1253 ml 250 ml Output Total 270 ml 20 ml 161 ml 300 ml Balance 1830 ml 570 ml 896 ml 953 ml 250 ml Intake Oral 240 ml 90 ml 240 ml IV Total 2100 ml 350 ml 967 ml 1013 ml 250 ml Output Urine Total 270 ml 20 ml 160 ml 300 ml Stool Total 1 ml # Voids 2 Result Diagram: 05/13/1762105/13/17621 Imaging Last Impressions Chest X-Ray 05/12/17 0427 Signed Impressions: Service Date/Time: Friday, May 12, 2017 04:34 - CONCLUSION: Patchy consolidation versus atelectasis in the anterior right middle lobe or lingula seen on the lateral view. Vasyl Diamond MD Objective Remarks GENERAL: Well-developed, well-nourished patient in [place]. SKIN: Warm and dry. No rash. Lymph this collar continued. Status post anterior cervical fusion. HEAD: Normocephalic. Atraumatic. EYES: Pupils equal and round. No scleral icterus. No injection or drainage. ENT: No nasal bleeding or discharge. Mucous membranes pink and moist. NECK: Supple. Trachea midline. CARDIOVASCULAR: Regular rate and rhythm. S1, S2 noted. No murmur appreciated. RESPIRATORY: No accessory muscle use. Clear to auscultation. Breath sounds equal bilaterally. GASTROINTESTINAL: Abdomen soft, non-tender, nondistended. Normoactive bowel sounds x4. MUSCULOSKELETAL: No obvious deformities. Extremities without clubbing, cyanosis , or edema. NEUROLOGICAL: Awake and alert. No obvious cranial nerve deficits. Motor grossly within normal limits. 5/5 muscle strength in bilateral upper and lower extremities. Normal speech. PSYCHIATRIC: Appropriate mood and affect; insight and judgment normal. A/P Problem List: (1) Sepsis ICD Code: A41.9 - Sepsis, unspecified organism Status: Acute (2) Urinary tract infection ICD Code: N39.0 - Urinary tract infection, site not specified Status: Acute (3) Right middle lobe pneumonia ICD Code: J18.1 - Lobar pneumonia, unspecified organism Status: Acute Assessment and Plan This is a pleasant 71-year-old male patient with a known medical history of CAT with history of [place] and cardiac stent placement, hyperlipidemia, hypertension who presented to the ED with complaints of generalized weakness and fever. Sepsis (meets criteria with fever, elevated lactic acid and leukocytosis) secondary to: Urinary tract infection with history of bladder atony and recent Weaver catheter use and Right middle lobe pneumonia - White blood cell 21,000, subjective fevers at home 103.5 and lactic acid 2.5 now 1.9. Abnormal UA. Await urine culture. Afebrile overnight. - Chest x-ray reviewed showing patchy consolidation versus atelectasis in the anterior right middle lobe. - Recent Weaver catheter use for bladder atony. Has resolved with patient urinating. Continue to monitor intake and output. - Patient has been placed on ceftriaxone and azithromycin IV. We will continue to monitor labs. Status post 1 L NS bolus in ED. Continue IVF hydration. Monitor for any fevers. Acetaminophen available. Blood cultures no growth to date. - Duonebs scheduled and as needed for shortness of breath. - Supplemental O2 as needed, patient comfortable on room air. - Supportive care. Bradycardia, chronic - Patient does have a history of bradycardia. Spoke with his joinery machinist Dr. Benitez who reviewed his record and it has been documented in his office. Will hold beta-rahel for now. - No further dizziness or lightheadedness. Continued IV hydration will discontinue due to patient tolerating p.o. intake well. We will continue to monitor on cardiac telemetry. EKG reviewed showing bradycardic rhythm. - Orthostatics mildly positive. Status post hydration. Will recheck this morning. - PT ordered for evaluation, appreciate input recommendations. Cervical spinal stenosis Cervical disc disease with myelopathy Recent C3-4 ACDF with resection of a posterior osteophytic disc complex - Continue neck brace. - Avoid anticoagulants x 1 month after surgery (will be 05/24/17) - Supportive care. - Pain control. - PT evaluation and treatment. DVT prophylaxis: SCDs. Will hold chemical prophylaxis due to patient's recent neurological procedure, patient states his doctor wanted him off any anticoagulations for 1 month, was done April 24. Dominique Maldonado May 13, 2017 11:32
[2017-05-13] MEDS: ACETAMINOPHEN 325 MG TAB PO PRN (21:19)
[2017-05-13] MEDS: guaiFENesin E.R. 600 MG TAB PO SCH (21:19)
[2017-05-14] VITALS (8 sets, daily range): BP systolic 131–164; BP diastolic 61–74; PULSE 35–97; RESP 18–20; TEMP 96.5–98.4; O2SAT 95–99
[2017-05-14] MEDS: AZITHROMYCIN INJ 500 MG in SODIUM CHLOR 0.9% 250 ML INJ 250 ML IV SCH (05:48)
[2017-05-14] MEDS: cefTRIAXone INJ 1,000 MG in SODIUM CHLORIDE 0.9% INJ 100 ML IV SCH (05:48)
[2017-05-14] MEDS: RESP: ALBUTEROL 2.5 MG/IPRATROPIUM 0.5 MG NEB (SCH) INH ×3 (08:04→19:24)
[2017-05-14] MEDS: sulfaSALAzine 500 MG TAB PO SCH ×2 (08:45→20:43)
[2017-05-14] MEDS: FOLIC ACID 1 MG TAB PO SCH (08:46)
[2017-05-14] MEDS: guaiFENesin E.R. 600 MG TAB PO SCH ×2 (08:46→20:44)
[2017-05-14] MEDS: SODIUM CHLORIDE 0.9% FLUSH 10 ML FLUSH IV FLUSH SCH ×2 (08:47→20:43)
--- NOTE | 2017-05-14 10:07 | HHI.PR ---
Subjective Remarks Follow-up sepsis secondary to UTI and pneumonia. Patient seen and examined, sitting on bedside in [facility]. Feeling much improved. Denies dysuria or dyspnea. Eating well, no abdominal pain, nausea or vomiting. Ambulating with PT and walker, continue to evaluate. Spoke to and patient regarding treatment plan and results. Urine culture growing e coli, MDR. TMAX 100.0 overnight. Objective Vitals Vital Signs Date Time Temp Pulse Resp B/P (MAP) Pulse Ox O2 Delivery O2 Flow Rate FiO2 05/14/17 07:50 97.8 45 20 154/74 (100) 95 05/14/17 04:00 97.5 97 20 131/63 (85) 97 05/14/17 00:00 96.9 45 20 146/67 (93) 97 05/13/17 20:00 99.3 52 18 158/70 (99) 96 05/13/17 20:00 95 21 05/13/17 15:50 100.0 45 20 145/62 (89) 99 05/13/17 11:50 97.4 47 20 155/67 (96) 95 I/O 05/13/17 05/13/17 05/13/17 05/14/17 05/14/17 05/14/17 07:00 15:00 23:00 07:00 15:00 23:00 Intake Total 1253 ml 1450 ml 300 ml 240 ml Output Total 300 ml 575 ml 600 ml Balance 953 ml 1450 ml -275 ml -360 ml Intake Oral 240 ml 300 ml 240 ml IV Total 1013 ml 1450 ml Output Urine Total 300 ml 575 ml 600 ml # Voids 4 # Bowel Movements 1 0 Result Diagram: 05/13/17 0622 05/13/17 06 Imaging Last Impressions Chest X-Ray 05/12/17 0427 Signed Impressions: Service Date/Time: Friday, May 12, 2017 04:34 - CONCLUSION: Patchy consolidation versus atelectasis in the anterior right middle lobe or lingula seen on the lateral view. Vasyl Diamond MD Objective Remarks GENERAL: Well-developed, well-nourished patient in [facility]. SKIN: Warm and dry. No rash. [place] collar continued. Status post anterior cervical fusion. HEAD: Normocephalic. Atraumatic. EYES: Pupils equal and round. No scleral icterus. No injection or drainage. ENT: No nasal bleeding or discharge. Mucous membranes pink and moist. NECK: Supple. Trachea midline. CARDIOVASCULAR: Regular rate and rhythm. S1, S2 noted. No murmur appreciated. RESPIRATORY: No accessory muscle use. Clear to auscultation. Breath sounds equal bilaterally. GASTROINTESTINAL: Abdomen soft, non-tender, nondistended. Normoactive bowel sounds x4. MUSCULOSKELETAL: No obvious deformities. Extremities without clubbing, cyanosis , or edema. NEUROLOGICAL: Awake and alert. No obvious cranial nerve deficits. Motor grossly within normal limits. 5/5 muscle strength in bilateral upper and lower extremities. Normal speech. PSYCHIATRIC: Appropriate mood and affect; insight and judgment normal. A/P Problem List: (1) Sepsis ICD Code: A41.9 - Sepsis, unspecified organism Status: Acute (2) Urinary tract infection ICD Code: N39.0 - Urinary tract infection, site not specified Status: Acute (3) Right middle lobe pneumonia ICD Code: J18.1 - Lobar pneumonia, unspecified organism Status: Acute Assessment and Plan This is a pleasant 71-year-old male patient with a known medical history of CAT with history of [place] and cardiac stent placement, hyperlipidemia, hypertension who presented to the ED with complaints of generalized weakness and fever. Sepsis (meets criteria with fever, elevated lactic acid and leukocytosis) secondary to: Urinary tract infection with history of bladder atony and recent Weaver catheter use and Right middle lobe pneumonia - White blood cell 21,000, subjective fevers at home 103.5 and lactic acid 2.5 now 1.9. Urine culture growing E. coli MDR. Sensitivity noted. Will send home on cefuroxime when ready to discharge. Afebrile overnight. - Chest x-ray reviewed showing patchy consolidation versus atelectasis in the anterior right middle lobe. - Recent Weaver catheter use for bladder atony. Has resolved with patient urinating. Continue to monitor intake and output. - Patient has been placed on ceftriaxone and azithromycin IV. We will continue to monitor labs. Status post 1 L NS bolus in ED. Continue IVF hydration. Monitor for any fevers. Acetaminophen available. Blood cultures no growth to date. - Duonebs scheduled and as needed for shortness of breath. - Supplemental O2 as needed, patient comfortable on room air. - Supportive care. Bradycardia, chronic - Patient does have a history of bradycardia. Spoke with his filtration plant mechanic Dr. Benitez who reviewed his record and it has been documented in his office. Will hold beta-rahel for now. - No further dizziness or lightheadedness. Continued IV hydration will discontinue due to patient tolerating p.o. intake well. We will continue to monitor on cardiac telemetry. EKG reviewed showing bradycardic rhythm. - Orthostatics mildly positive. Status post hydration. Will recheck this morning. - PT ordered for evaluation, appreciate input recommendations. Cervical spinal stenosis Cervical disc disease with myelopathy Recent C3-4 ACDF with resection of a posterior osteophytic disc complex - Continue neck brace. - Avoid anticoagulants x 1 month after surgery (will be 05/24/17) - Supportive care. - Pain control. - PT evaluation and treatment. - SCDs/TEDs ordered. Patient is stating he does not want to use these either. Educated on importance/risk. DVT prophylaxis: SCDs. Will hold chemical prophylaxis due to patient's recent neurological procedure. Discharge Planning Spoke to patient and later in the afternoon, patient is stating he is feeling much improved and with increased strength. Contemplating the possibility of going home with home health care PT and nursing tomorrow versus rehab depending on PT recommendations. Dominique Maldonado May 14, 2017 10:07
[2017-05-14] MEDS ORDERED: AZITHROMYCIN INJ 500 MG in SODIUM CHLOR 0.9% 250 ML INJ 250 ML IV ONE (11:30)
[2017-05-14] MEDS ORDERED: cefTRIAXone INJ 1,000 MG in SODIUM CHLORIDE 0.9% INJ 100 ML IV ONE (11:30)
[2017-05-14] MEDS: ACETAMINOPHEN 325 MG TAB PO PRN (23:52)
[2017-05-15] VITALS (7 sets, daily range): BP systolic 112–191; BP diastolic 56–90; PULSE 43–81; RESP 16–20; TEMP 96–98.2; O2SAT 95–99
[2017-05-15 06:58] LABS: AUTOMATED NEUTROPHIL # 4.7 TH/MM3 (1.8-7.7); BASOPHIL # 0.1 TH/MM3 (0-0.2); BASOPHIL % 0.8 % (0.0-2.0); EOSINOPHIL # 0.1 TH/MM3 (0-0.4); HEMATOCRIT 33.8 % (39.0-51.0); HEMOGLOBIN 10.9 GM/DL (13.0-17.0); LYMPH % 15.6 % (9.0-44.0); LYMPHOCYTE # 1.1 TH/MM3 (1.0-4.8); MEAN CELL VOLUME 95.7 FL (80.0-100.0); MEAN CORPUSCULAR HEMOGLOBIN 30.8 PG (27.0-34.0); MEAN CORPUSCULAR HGB CONC 32.2 % (32.0-36.0); MEAN PLATELET VOLUME 8.8 FL (7.0-11.0); MONO % 12.4 % (0.0-8.0); MONOCYTE # 0.9 TH/MM3 (0-0.9); NEUT % 70.2 % (16.0-70.0); PLATELET COUNT 153 TH/MM3 (150-450); RED BLOOD COUNT 3.53 MIL/MM3 (4.50-5.90); RED CELL DISTRIBUTION WIDTH 12.9 % (11.6-17.2); WHITE BLOOD COUNT 6.9 TH/MM3 (4.0-11.0)
[2017-05-15 07:12] LABS: BICARBONATE 26.6 MEQ/L (21.0-32.0); CALCIUM 8.1 MG/DL (8.5-10.1)
[2017-05-15 07:16] LABS: CREATININE 0.66 MG/DL (0.60-1.30)
[2017-05-15] MEDS: RESP: ALBUTEROL 2.5 MG/IPRATROPIUM 0.5 MG NEB (SCH) INH ×3 (07:21→20:08)
[2017-05-15] MEDS: FOLIC ACID 1 MG TAB PO SCH (08:08)
[2017-05-15] MEDS: sulfaSALAzine 500 MG TAB PO SCH ×2 (08:08→21:00)
[2017-05-15] MEDS: guaiFENesin E.R. 600 MG TAB PO SCH ×2 (08:08→21:00)
[2017-05-15] MEDS: SODIUM CHLORIDE 0.9% FLUSH 10 ML FLUSH IV FLUSH SCH ×2 (08:08→21:00)
[2017-05-15] MEDS: cefTRIAXone INJ 1,000 MG in SODIUM CHLORIDE 0.9% INJ 100 ML IV SCH (11:18)
[2017-05-15] MEDS: AZITHROMYCIN INJ 500 MG in SODIUM CHLOR 0.9% 250 ML INJ 250 ML IV SCH (12:43)
[2017-05-15] MEDS ORDERED: CEFU1TAB20 PO (14:16)
--- NOTE | 2017-05-15 14:17 | HHI.DCPOC ---
Discharge Care Plan Diagnosis: (1) Right middle lobe pneumonia (2) Urinary tract infection (3) Sepsis Goals to Promote Your Health * To prevent worsening of your condition and complications * To maintain your health at the optimal level Directions to Meet Your Goals Take your medications as prescribed Follow your dietary instruction Follow activity as directed Keep your appointments as scheduled Take your immunizations and boosters as scheduled If your symptoms worsen call your PCP, if no PCP go to Urgent Care Center or Emergency Room Smoking is Dangerous to Your Health. Avoid second hand smoke Call the 24-hour hour crisis hotline for domestic abuse at Hira Durbin May 15, 2017 14:17
--- NOTE | 2017-05-15 14:19 | HHI.DS ---
Discharge Summary Admission Date May 12, 2017 at 10:18 Discharge Date: May 15, 2017 Admitting Diagnosis Sepsis, urinary tract infection, right middle lobe pneumonia (1) Sepsis ICD Code: A41.9 - Sepsis, unspecified organism Status: Acute (2) Urinary tract infection ICD Code: N39.0 - Urinary tract infection, site not specified Status: Acute (3) Right middle lobe pneumonia ICD Code: J18.1 - Lobar pneumonia, unspecified organism Status: Acute Brief History - From Admission This is a pleasant 71-year-old male patient with a known medical history of CAD with history of OR and cardiac stent placement, hyperlipidemia, hypertension who presented to the ED with complaints of generalized weakness and fever. Patient with subjective fever 103.5 at home. He states that over the past 2 days he has been increasingly fatigued and generally weak. Supposedly patient presented to the ED last week with hydrocodone induced bladder atony and required catheterization, patient kept the catheter in for 5 days and was last seen with Dr. Tipton on Monday in the office when the Weaver catheter was removed and Flomax was discontinued. Patient states that over the past few days he has been having urinary frequency. Denies any dysuria or flank pain. It should be noted that patient underwent a C3-C4 ACDF with resection of a posterior osteophytic disc complex surgery on 04/24/[address] Fontaine and has been following in his office. CBC/BMP: 05/15/17 0630 05/15/17 0630 Significant Findings Laboratory Tests Test 05/13/17 06:22 05/15/17 06:30 White Blood Count 14.9 TH/MM3 (4.0-11.0) Red Blood Count 3.44 MIL/MM3 (4.50-5.90) 3.53 MIL/MM3 (4.50-5.90) Hemoglobin 11.4 GM/DL (13.0-17.0) 10.9 GM/DL (13.0-17.0) Hematocrit 33.6 % (39.0-51.0) 33.8 % (39.0-51.0) Platelet Count 138 TH/MM3 (150-450) Neutrophils (%) (Auto) 85.3 % (16.0-70.0) 70.2 % (16.0-70.0) Lymphocytes (%) (Auto) 7.0 % (9.0-44.0) Neutrophils # (Auto) 12.9 TH/MM3 (1.8-7.7) Monocytes # (Auto) 1.1 TH/MM3 (0-0.9) Blood Urea Nitrogen 26 MG/DL (7-18) Random Glucose 108 MG/DL (74-106) Calcium Level 7.9 MG/DL (8.5-10.1) 8.1 MG/DL (8.5-10.1) Chloride Level 110 MEQ/L (98-107) 108 MEQ/L (98-107) Estimat Glomerular Filtration Rate 77 ML/MIN (>89) Monocytes (%) (Auto) 12.4 % (0.0-8.0) Potassium Level 3.1 MEQ/L (3.5-5.1) Imaging Last Impressions Chest X-Ray 05/12/17 3687 Signed Impressions: Service Date/Time: Friday, May 12, 2017 04:34 - CONCLUSION: Patchy consolidation versus atelectasis in the anterior right middle lobe or lingula seen on the lateral view. Vasyl Diamond MD PE at Discharge GENERAL: Well-developed, well-nourished patient in NAD. SKIN: Warm and dry. No rash. Johnathan collar continued. Status post anterior cervical fusion. HEAD: Normocephalic. Atraumatic. EYES: Pupils equal and round. No scleral icterus. No injection or drainage. ENT: No nasal bleeding or discharge. Mucous membranes pink and moist. NECK: Supple. Trachea midline. CARDIOVASCULAR: Regular rate and rhythm. S1, S2 noted. No murmur appreciated. RESPIRATORY: No accessory muscle use. Clear to auscultation. Breath sounds equal bilaterally. GASTROINTESTINAL: Abdomen soft, non-tender, nondistended. Normoactive bowel sounds x4. MUSCULOSKELETAL: No obvious deformities. Extremities without clubbing, cyanosis , or edema. NEUROLOGICAL: Awake and alert. No obvious cranial nerve deficits. Motor grossly within normal limits. 5/5 muscle strength in bilateral upper and lower extremities. Normal speech. PSYCHIATRIC: Appropriate mood and affect; insight and judgment normal. Pt Condition on Discharge: Stable Discharge Disposition: Discharge Home Discharge Time: > 30 minutes Discharge Instructions DIET: Follow Instructions for: Heart Healthy Diet Activities you can perform: Regular-No Restrictions Follow up Referrals: PCP Follow-up New Medications: Cefuroxime (Cefuroxime) 500 Mg Tab 500 MG PO Q12HR for Infection for 6 Days, TAB Continued Medications: Acetaminophen (Tylenol) 325 Mg Tab 325-650 MG PO ONCE for Pain Management, #1 TAB 0 Refills Carvedilol (Coreg) 6.25 Mg Tab 6.25 MG PO BID, #60 TAB 0 Refills Etanercept PF Inj (Enbrel PF Inj) 50 mg/ml Syr 50 MG SQ Q7D, #4 SYRINGE 0 Refills Folic Acid (Folic Acid) 1 Mg Tablet 1 TAB PO DAILY Lisinopril (Lisinopril) 20 Mg Tab 20 MG PO HS, #30 TAB 0 Refills Methotrexate (Methotrexate) 2.5 Mg Tab 7 TAB PO Q7D, TAB 0 Refills MONDAY OR MONDAY MORNING Nitroglycerin SL (Nitrostat SL) 0.4 Mg Subl 0.4 MG SL DIRECTED PRN for CHEST PAIN, #100 TAB.SL 0 Refills 1 tablet under the tongue as needed for chest pain. Repeat every 5 minutes for a total of 3 DOSES or call 911 if NO relief. Sildenafil (Viagra) 50 Mg Tab 50 MG PO DAILY PRN for ERECTILE DYSFUNCTION, TAB 0 Refills Sulfasalazine (Sulfasalazine) 500 Mg Tab 1500 MG PO BID, #120 TAB 0 Refills Zolpidem (Ambien) 5 Mg Tab 10 MG PO HS PRN for INSOMNIA, TAB 0 Refills Hira Durbin May 15, 2017 14:19
--- NOTE | 2017-05-15 16:01 | EKG ---
Date Performed: 05/15/2017 Time Performed: 15:36:00 PTAGE: 71 years EKG: ATRIAL FLUTTER/TACHYCARDIA WITH SLOW VENTRICULAR RESPONSE RIGHT BUNDLE BRANCH BLOCK LEFT AN TERIOR FASCICULAR BLOCK POSSIBLE ANTERIOR MYOCARDIAL INFARCTION ABNORMAL ECG Compared to prior electr ocardiogram, atrial flutter has replaced Normal Sinus rhythm PREVIOUS TRACING : 05/12/2017 02.41 DOCTOR: Kike Benitez Interpretating Date/Time 05/15/2017 16:00:12
--- NOTE | 2017-05-15 18:35 | HHI.PR ---
Subjective Remarks Patient seen and examined today for follow-up on complicated urinary tract infection. Patient is doing much better. Denies any new complaints. Patient is asking if he can go home. Patient is clinically stable, was planning discharge accordingly, however, telemetry indicated atrial flutter with slow ventricular response. I contacted patient's chemical plant worker who indicated that this is a new finding. Objective Vitals Vital Signs Date Time Temp Pulse Resp B/P (MAP) Pulse Ox O2 Delivery O2 Flow Rate FiO2 05/15/17 16:00 97.4 48 18 119/56 (77) 99 05/15/17 12:00 96.9 81 18 146/69 (94) 96 05/15/17 08:00 96.0 43 18 128/60 (82) 98 141/65 (90) 155/70 (98) 05/15/17 04:00 97.4 45 16 164/72 (102) 98 170/90 (116) 191/79 (116) 05/15/17 00:00 97.8 46 18 112/64 (80) 95 05/14/17 20:00 52 05/14/17 20:00 98.4 35 18 164/73 (103) 98 05/14/17 19:24 98 21 I/O 05/14/17 05/14/17 05/14/17 05/15/17 05/15/17 05/15/17 07:00 15:00 23:00 07:00 15:00 23:00 Intake Total 240 ml 300 ml Output Total 600 ml 850 ml 300 ml Balance -360 ml -550 ml -300 ml Intake Oral 240 ml 300 ml Output Urine Total 600 ml 850 ml 300 ml # Voids 4 4 2 # Bowel Movements 0 2 Result Diagram: 05/15/17 0630 05/15/17 0630 Objective Remarks GENERAL: Well-developed, well-nourished, in no acute distress. alert and orientated HEENT: Head is normocephalic without any lesions or masses noted. Facial features are symmetric. Eyes: Extraocular muscles are intact. Conjunctivae were clear. NECK: Supple without any masses. Trachea midline no deviation. No JVD, CARDIAC: Regular rhythm, regular rate. S1/S2 are heard. No murmurs gallops or rubs. LUNGS: Clear to auscultation bilaterally. No wheeze, rhonchi or rales. No use of accessory muscles on inspiration or expiration. ABDOMEN: Soft, nontender. Nondistended. Bowel sounds heard in all 4 quadrants. No organomegaly or masses. Negative rebound, negative guarding EXTREMITIES: No edema, pulses are equal bilaterally. No cyanosis or clubbing NEUROLOGY: Mood and affect appear appropriate. Cranial nerves II through XII grossly intact. Moving all extremities, speech is clear Urinary Catheter: No Vascular Central Line Catheter: No A/P Assessment and Plan Atrial flutter with slow ventricular response, new onset This was initially found incidentally on telemetry, EKG was performed which confirmed diagnosis Discussed with patient's chemical plant worker Dr. Benitez who indicated that this is a new finding per his records Net Lead Architect indicated the patient will require full anticoagulation with Eliquis preferably. Discussed with patient's neurosurgery Dr. Fonatine and neurologist Dr. Ashton since patient has had recent MRIs and cervical spine surgery. They both indicate that patient is okay to be placed on full anticoagulation discussed treatment options with patient that was agreed upon by chemical plant worker to start anticoagulation and follow-up with him in outpatient setting versus stay in hospital and see chemical plant worker tomorrow morning requested that the patient stay in the hospital for cardiac evaluation Obtain echocardiogram Sepsis, patient met criteria on admission with fever, lactic acidosis, leukocytosis, resolved Patient was found to have complicated urinary tract infection from difficulty urinating from opiates Chest x-ray also indicated patchy consolidations versus atelectasis in the anterior right middle lobe Patient started on Rocephin/Zithromax, will discontinue IV antibiotics and start Ceftin 500 mg twice daily for 4 more days Influenza testing was negative Blood cultures are negative for 3 days Cervical spinal stenosis, Cervical disc disease with myelopathy Status post recent C3-4 ACDF with resection of a posterior osteophytic disc complex Continue neck brace. PT evaluation and treatment. DVT prevention Sequential compression devices Patient started on Eliquis Discharge Planning Discharge planning tomorrow after seen by chemical plant worker Hira Durbin May 15, 2017 18:35
[2017-05-15] MEDS ORDERED: APIXABAN 2.5 MG TABLET PO SCH (21:00)
[2017-05-15] MEDS: CEFUROXIME AXETIL 500 MG TAB PO SCH (21:00)
[2017-05-15] MEDS ORDERED: POTASSIUM CHLORIDE 10 MEQ CONTROLLED RELEASE TAB PO ONE (21:00)
[2017-05-15] MEDS: ACETAMINOPHEN 325 MG TAB PO PRN (22:16)
[2017-05-16] VITALS (14 sets, daily range): BP systolic 115–134; BP diastolic 58–63; PULSE 38–81; RESP 18–22; TEMP 96.1–98.1; O2SAT 93–100
--- NOTE | 2017-05-16 07:25 | MB ---
cc: Kike Benitez MD, Alan S MD DATE: 05/16/2017 I have reviewed hospital and office records. HISTORY OF PRESENT ILLNESS: The patient is a pleasant 71-year-old man well known to myself who I am seeing for atrial flutter and heart block. The patient in 2004 had a STEMI and had a drug-eluting stent to the circumflex. In 09/2016, he had SPECT nuclear showing a fixed inferior and predominantly fixed basal-mid lateral defect. The patient has had no cardiac symptomatology. He did undergo cervical disk surgery approximately 3-4 weeks ago. Postoperatively, he did have bladder retention with infection. He was admitted for fever and sepsis. The patient does run a mild bradycardia in the office and has bifascicular block. He has no cardiac symptoms except for trace pedal edema recently. Admitting EKG was read as sinus rhythm with bifascicular block, but on review, he has been in 2:1 AV block. Yesterday, he was noted to be in slow atrial flutter. Again, he has really no significant cardiac symptomatology and has been hemodynamically stable. He was off both aspirin and Plavix for 10 days before and after surgery and has been on aspirin. PAST MEDICAL HISTORY: Otherwise, hypertension, hyperlipidemia, esophageal reflux, renal calculus, pancreatitis, bifascicular block, paroxysmal ventricular tachycardia, psoriatic arthritis, cholecystectomy. ALLERGIES: NONE. FAMILY HISTORY: Remarkable for father with CAD at 58. SOCIAL HISTORY: He is and smoked in the past and has an occasional drink. MEDICATIONS: The list was reviewed. REVIEW OF SYSTEMS: Remarkable for the neck discomfort. He does have a neck brace on. He has had some balance issues and sleep issues along with vision and hearing issues. LABORATORY DATA: Electrocardiogram as above. IMAGING: Initial chest x-ray with patchy consolidation versus atelectasis. LABORATORY DATA: Initial white count 21,000, but was down to 6.9 yesterday. Hematocrit yesterday 33.8. Potassium yesterday 3.1, which is being repleted. Creatinine 0.66. Troponin on admission less than 0.02 with normal liver functions. His urinalysis was positive for many white cells and urine culture positive for Escherichia coli. PHYSICAL EXAMINATION: VITAL SIGNS: On exam, he was initially febrile to 101, but he is afebrile and vital signs stable otherwise now. HEENT: There are no xanthelasma and oropharyngeal mucosa normal. CHEST: Clear. NECK: He has a neck brace on. JVD unassessable. CARDIOVASCULAR: S1, S2. No murmurs or gallops. ABDOMEN: Benign. EXTREMITIES: Showed trace to 1 plus edema. Pulses: Carotids not be felt, radials 1+ to 2+, femorals not felt as he is sitting in the chair and pedals not felt. He is not ambulated. PROBLEMS: 1. Atrial flutter with slow response. 2. Bifascicular block with 2:1 AV block. 3. History of coronary artery disease. 4. Urosepsis. 5. Recent neck surgery. 6. Hypertension. 7. Hyperlipidemia. RECOMMENDATIONS: 1. Continue baby aspirin. 2. Hold off on full anticoagulation at this point in time as the patient does need a pacemaker which I have discussed with him. I have spoken with Mr. Durbin, the PA, and he will transfer him to [facility]. I have a call into my partner, Dr. Calderon. 3. Hold full anticoagulation. 4. The patient ideally should be on statin therapy, but is not. 5. I will leave further management to the primary service and my partner. All questions were answered. Kike Benitez MD ASG/DL , 06:36 AM , 07:23 AM MTDConnie
[2017-05-16] MEDS: RESP: ALBUTEROL 2.5 MG/IPRATROPIUM 0.5 MG NEB (SCH) INH ×2 (07:36→15:53)
--- NOTE | 2017-05-16 07:49 | HHI.PR ---
Subjective Remarks Patient seen and examined today for follow-up on complicated urinary tract infection, arrhythmia. Patient states that he is doing well. Denies any new complaints. Patient still with atrial arrhythmia. Discussed with foundry supervisor this morning. Objective Vitals Vital Signs Date Time Temp Pulse Resp B/P (MAP) Pulse Ox O2 Delivery O2 Flow Rate FiO2 05/16/17 07:36 100 21 05/16/17 04:00 96.2 54 20 127/61 (83) 99 05/16/17 00:00 97.0 54 20 115/58 (77) 97 05/15/17 20:10 97 21 05/15/17 20:00 98.2 55 20 122/67 (85) 98 05/15/17 16:00 97.4 48 18 119/56 (77) 99 05/15/17 12:00 96.9 81 18 146/69 (94) 96 05/15/17 08:00 96.0 43 18 128/60 (82) 98 141/65 (90) 155/70 (98) I/O 05/15/17 05/15/17 05/15/17 05/16/17 05/16/17 05/16/17 07:00 15:00 23:00 07:00 15:00 23:00 Intake Total 600 ml Output Total 300 ml 650 ml Balance -300 ml -50 ml Intake Oral 600 ml Output Urine Total 300 ml 650 ml # Voids 2 1 # Bowel Movements 1 Result Diagram: 05/15/17 0630 05/15/17 0630 Objective Remarks GENERAL: Well-developed, well-nourished, in no acute distress. alert and orientated HEENT: Head is normocephalic without any lesions or masses noted. Facial features are symmetric. Eyes: Extraocular muscles are intact. Conjunctivae were clear. NECK: Supple without any masses. Trachea midline no deviation. No JVD, CARDIAC: Irregular rhythm, irregular rate. S1/S2 are heard. No murmurs gallops or rubs. LUNGS: Clear to auscultation bilaterally. No wheeze, rhonchi or rales. No use of accessory muscles on inspiration or expiration. ABDOMEN: Soft, nontender. Nondistended. Bowel sounds heard in all 4 quadrants. No organomegaly or masses. Negative rebound, negative guarding EXTREMITIES: No edema, pulses are equal bilaterally. No cyanosis or clubbing NEUROLOGY: Mood and affect appear appropriate. Cranial nerves II through XII grossly intact. Moving all extremities, speech is clear Urinary Catheter: No Vascular Central Line Catheter: No A/P Assessment and Plan Atrial flutter with slow ventricular response, 2-1 AV block, right bundle branch block This was initially found incidentally on telemetry, EKG was performed which confirmed diagnosis Discussed with patient's foundry supervisor Dr. Benitez who indicated that patient had multiple arrhythmias during his stay in the hospital include right bundle branch block, 2-1 AV block [employer] Executive indicates that the patient will require a pacemaker, request transferred to [facility] for procedure, since procedure cannot be done in [place] [employer] Executive indicated the patient will require full anticoagulation with Eliquis Discussed with patient's neurosurgery Dr. Fontaine and neurologist Dr. Ashton since patient has had recent MRIs and cervical spine surgery. They both indicate that patient is okay to be placed on full anticoagulation Awaiting echocardiogram Sepsis, patient met criteria on admission with fever, lactic acidosis, leukocytosis, resolved Patient was found to have complicated urinary tract infection from difficulty urinating from opiates Chest x-ray also indicated patchy consolidations versus atelectasis in the anterior right middle lobe Patient started on Rocephin/Zithromax, will discontinue IV antibiotics and start Ceftin 500 mg twice daily for 4 more days Influenza testing was negative Blood cultures are negative for 3 days Cervical spinal stenosis, Cervical disc disease with myelopathy Status post recent C3-4 ACDF with resection of a posterior osteophytic disc complex Continue neck brace. PT evaluation and treatment. DVT prevention Sequential compression devices Patient started on Eliquis, being held at this time for procedure Discharge Planning Transfer to [facility] for pacemaker placement per cardiology Hira Durbin May 16, 2017 07:49
[2017-05-16 08:00] LABS: CALCIUM 8.4 MG/DL (8.5-10.1)
[2017-05-16 08:04] LABS: CREATININE 0.61 MG/DL (0.60-1.30)
[2017-05-16] MEDS: ASPIRIN EC 81 MG TABEC PO SCH (09:00)
[2017-05-16] MEDS: guaiFENesin E.R. 600 MG TAB PO SCH ×2 (09:02→22:46)
[2017-05-16] MEDS: FOLIC ACID 1 MG TAB PO SCH (09:02)
[2017-05-16] MEDS: CEFUROXIME AXETIL 500 MG TAB PO SCH ×2 (09:02→22:46)
[2017-05-16] MEDS: SODIUM CHLORIDE 0.9% FLUSH 10 ML FLUSH IV FLUSH SCH ×2 (09:03→22:46)
[2017-05-16] MEDS: sulfaSALAzine 500 MG TAB PO SCH ×2 (09:10→22:46)
[2017-05-16] MEDS ORDERED: MUPIROCIN 2% OINT 1 APPLIC/GM SYR EACH NARE SCH (16:15)
[2017-05-16] MEDS ORDERED: CHLORHEXIDINE GLUCONATE 2 % 1 PACK (2 CLOTHS) TOPICAL SCH (16:15)
[2017-05-16] MEDS ORDERED: POVIDONE IODINE 5% (ANTISEPSIS KIT) 4 APPLICATIONS TOPICAL SCH (16:15)
--- NOTE | 2017-05-16 16:18 | MB ---
cc: Randal Calderon MD DATE: 05/16/2017 REASON FOR CONSULTATION: Assess need for permanent pacemaker implantation. HISTORY OF PRESENT ILLNESS: The patient is a 71-year-old white male with a history of coronary artery disease, psoriatic arthritis, hyperlipidemia, hypertension, pancreatitis, recent cervical neck surgery, who presented to the hospital about 4 days ago with just generalized weakness and fever. He had been taking hydrocodone for a cough which apparently induced bladder atony resulting in urinary tract infection. Since coming into the hospital, he states he feels "much, much better." He denies any recent chest pains, shortness of breath, palpitations, paroxysmal nocturnal dyspnea. About 5 days ago while standing for an x-ray he developed fairly severe lightheadedness and believes he lost consciousness for "just a second" He cannot recall any other episodes of syncope or dizziness. Here in the hospital, he has also been found to be in atrial flutter with a slow ventricular response. He denies palpitations. The patient has noted somewhat increased pedal edema in the last several days compared to baseline. PAST MEDICAL HISTORY: 1. Pancreatitis in 04/2015. 2. Coronary artery disease status post ST-elevation myocardial infarction and stent of the left circumflex in 2004. 3. Psoriatic arthritis. 4. Hyperlipidemia. 5. Hypertension. PAST SURGICAL HISTORY: 1. Cholecystectomy. 2. Cervical neck surgery 04/24/2017 for severe C3-C4 stenosis and cervical myelopathy. CURRENT CARDIAC MEDICATIONS: Aspirin 81 mg p.o. daily. ALLERGIES: NO KNOWN DRUG ALLERGIES. FAMILY HISTORY: Noncontributory. SOCIAL HISTORY: The patient is a former smoker. There is no history of alcohol abuse. REVIEW OF SYSTEMS: As in the History of Present Illness, otherwise negative or noncontributory. He also denies headache, visual changes, abdominal pain, melena, dyspepsia, bright red blood per rectum. PHYSICAL EXAMINATION: VITAL SIGNS: His blood pressure is 126/60 with a pulse of 40, respirations 20. GENERAL: He is a well-developed, well-nourished white male, in no acute distress. HEENT: A cervical collar is in place. CHEST: Reveals clear lungs potts anteriorly. CARDIAC: He has a bradycardic, irregular rhythm without S3 or murmur. ABDOMEN: He had a soft, obese, nontender abdomen. Bowel sounds are present. There is no definite hepatosplenomegaly. EXTREMITIES: Reveals no clubbing, cyanosis or edema. LABORATORY DATA: EKG from 05/12/2017 shows sinus bradycardia with second degree AV block, possibly type 2, right bundle branch block, left anterior fascicular block. EKG from 05/15/2017 shows atrial flutter with a slow ventricular response. LABORATORY DATA: WBC 6.9, hemoglobin 10.9, platelets 153. Potassium 3.4, BUN 14, creatinine 0.61. Chest x-ray shows atelectasis in the anterior right middle lobe or lingula seen on the lateral view. IMPRESSION: Paroxysmal atrial flutter with a slow ventricular response, advanced conduction system disease in this 71-year-old white male with a history of coronary artery disease, psoriatic arthritis, hyperlipidemia, hypertension. I have been asked to see the patient for possible permanent pacemaker implantation. Review of his prior EKG from last week does reveal second degree AV block, probably type II. In addition, he has evidence for bifascicular block with right bundle branch block and left anterior fascicular block. At this time, he is in atrial flutter with slow heart rates. Four days ago he did have a syncopal episode and certainly he may have been extremely bradycardic at that time. At this point, I would agree with the need for permanent pacemaker implantation. The nature of this procedure and the potential risks were outlined at length with the patient and his . They agreed to proceed. With respect to his recent infection, it appears he has defervesced and there has been resolution of his leukocytosis. Blood cultures have been negative. RECOMMENDATIONS: 1. Permanent pacemaker implant tomorrow. 2. Overall, would recommend anticoagulation therapy after the pacemaker implant given his thromboembolic risk with the atrial flutter. MD ELIA Cabral/DARREL , 03:59 PM , 04:17 PM ESTER
--- NOTE | 2017-05-16 16:42 | ECHRPT ---
Indication: Persistent atrial fibrillation CONCLUSIONS Technically very difficult study. Grossly left ventricular function appears to be normal. Segmenta l wall motion abnormalities cannot be excluded. Wall thickness is measured at the upper limits of normal. Normal left ventricular size. Trace mitral valve regurgitation. The aortic valve is not well visualized. BP: / HR: Rhythm: Atrial fibrillation MEASUREMENTS (Male / Female) Normal Values Technical Quality:Fair 2D ECHO LV Diastolic Diameter PLAX 4.6 cm 4.2 - 5.9 / 3.9 - 5.3 cm LV Systolic Diameter PLAX 3.6 cm IVS Diastolic Thickness 1.2 cm 0.6 - 1.0 / 0.6 - 0.9 cm LVPW Diastolic Thickness 1.2 cm 0.6 - 1.0 / 0.6 - 0.9 cm LV Relative Wall Thickness 0.5 LVOT Diameter 2.8 cm M-MODE Aortic Root Diameter MM 3.7 cm LA Systolic Diameter MM 3.4 cm LA Ao Ratio MM 0.9 AV Cusp Separation MM 2.1 cm DOPPLER AV Peak Velocity 141.0 cm/s AV Peak Gradient 8.0 mmHg LVOT Peak Velocity 95.8 cm/s LVOT Peak Gradient 3.7 mmHg AV Area Cont Eq pk 4.2 cm MR Peak Velocity 174.0 cm/s MR Peak Gradient 12.1 mmHg Mitral E Point Velocity 97.7 cm/s Mitral A Point Velocity 46.4 cm/s Mitral E to A Ratio 2.1 PV Peak Velocity 122.0 cm/s PV Peak Gradient 6.0 mmHg FINDINGS LEFT VENTRICLE Technically very difficult study. Grossly left ventricular function appears to be normal. Segmenta l wall motion abnormalities cannot be excluded. Wall thickness is measured at the upper limits of normal. Normal left ventricular size. RIGHT VENTRICLE Normal right ventricular size and systolic function. LEFT ATRIUM The left atrial size is normal. RIGHT ATRIUM The right atrial size is normal. ATRIAL SEPTUM Normal atrial septal thickness without atrial level shunting by limited color doppler interrogation. AORTA The aortic root and proximal ascending aorta are normal in size on limited imaging. MITRAL VALVE Trace mitral valve regurgitation. AORTIC VALVE The aortic valve is not well visualized. TRICUSPID VALVE Structurally normal tricuspid valve. No tricuspid valve stenosis or regurgitation. PULMONARY VALVE The pulmonary valve is not well visualized. VESSELS The inferior vena cava is normal in size. PERICARDIUM No pericardial effusion. Randal Calderon MD (Electronically Signed) Final Date:16 May 2017 16:41
[2017-05-17] VITALS (19 sets, daily range): BP systolic 108–195; BP diastolic 52–77; PULSE 38–80; RESP 9–20; TEMP 98.1–98.4; O2SAT 91–99
[2017-05-17] MEDS ORDERED: SODIUM CHLOR 0.9% 1000 ML INJ 1,000 ML IV SCH (07:00)
--- NOTE | 2017-05-17 08:48 | HHI.PR ---
Subjective Remarks Patient is in the chair he does not appear in acute distress at this time he still complains of some shortness of breath and lightheadedness. No chest pain no fever or chills no cough. He also complains of problem with urination having Weaver removed did not help, says he had multiple urinary tract infections in the past and he follows with urology Dr. no fever chills no nausea or vomiting he was eating yesterday well. Nothing by mouth at this time is planned for pacemaker at noon Objective Vitals Vital Signs Date Time Temp Pulse Resp B/P (MAP) Pulse Ox O2 Delivery O2 Flow Rate FiO2 05/17/17 06:00 40 05/17/17 04:00 98.4 59 19 159/77 (104) 93 05/17/17 04:00 59 05/17/17 02:00 46 05/17/17 00:00 98.1 40 18 132/58 (82) 94 05/17/17 00:00 40 05/16/17 22:00 59 05/16/17 21:09 97 21 05/16/17 20:00 40 05/16/17 20:00 40 22 115/58 (77) 97 05/16/17 19:00 53 05/16/17 18:00 60 05/16/17 16:00 46 05/16/17 16:00 46 20 126/60 (82) 95 05/16/17 15:53 99 05/16/17 14:00 41 05/16/17 13:00 38 05/16/17 12:00 98.1 45 22 126/60 (82) 98 I/O 05/16/17 05/16/17 05/16/17 05/17/17 05/17/17 05/17/17 07:00 15:00 23:00 07:00 15:00 23:00 Intake Total 720 ml 200 ml Output Total 500 ml Balance 720 ml -300 ml Intake Oral 720 ml 200 ml Output Urine Total 500 ml Stool Total 0 ml # Voids 5 8 # Bowel Movements 0 0 Result Diagram: 05/15/17 0630 05/16/17 0640 Imaging Last Impressions Chest X-Ray 05/12/17 0427 Signed Impressions: Service Date/Time: Friday, May 12, 2017 04:34 - CONCLUSION: Patchy consolidation versus atelectasis in the anterior right middle lobe or lingula seen on the lateral view. Vasyl Diamond MD Objective Remarks GENERAL: Well-developed, well-nourished, in no acute distress. alert and orientated HEENT: Head is normocephalic without any lesions or masses noted. Facial features are symmetric. Eyes: Extraocular muscles are intact. Conjunctivae were clear. NECK: Supple without any masses. Trachea midline no deviation. No JVD, CARDIAC: Irregular rhythm, irregular rate. S1/S2 are heard. No murmurs gallops or rubs. LUNGS: Clear to auscultation bilaterally. No wheeze, rhonchi or rales. No use of accessory muscles on inspiration or expiration. ABDOMEN: Soft, nontender. Nondistended. Bowel sounds heard in all 4 quadrants. No organomegaly or masses. Negative rebound, negative guarding EXTREMITIES: No edema, pulses are equal bilaterally. No cyanosis or clubbing NEUROLOGY: Mood and affect appear appropriate. Cranial nerves II through XII grossly intact. Moving all extremities, speech is clear A/P Problem List: (1) Sepsis ICD Code: A41.9 - Sepsis, unspecified organism Status: Acute (2) Urinary tract infection ICD Code: N39.0 - Urinary tract infection, site not specified Status: Acute (3) Right middle lobe pneumonia ICD Code: J18.1 - Lobar pneumonia, unspecified organism Status: Acute Assessment and Plan Atrial flutter with slow ventricular response, 2-1 AV block, right bundle branch block This was initially found incidentally on telemetry, EKG was performed which confirmed diagnosis Discussed with patient's coordinator of rehabilitation services Dr. Benitez who indicated that patient had multiple arrhythmias during his stay in the hospital include right bundle branch block, 2-1 AV block Pre Press Operator indicates that the patient will require a pacemaker, request transferred to [facility] for procedure, since procedure cannot be done in [place] Pre Press Operator indicated the patient will require full anticoagulation with Eliquis Per patient's neurosurgery Dr. Fontaine and neurologist Dr. Ashton since patient has had recent MRIs and cervical spine surgery. They both indicate that patient is okay to be placed on full anticoagulation. Echocardiogram reviewed incomplete study Plan for PM 05/17/17 Sepsis, patient met criteria on admission with fever, lactic acidosis, leukocytosis, resolved Patient was found to have complicated urinary tract infection from difficulty urinating from opiates Chest x-ray also indicated patchy consolidations versus atelectasis in the anterior right middle lobe Patient started on Rocephin/Zithromax, will discontinue IV antibiotics and start Ceftin 500 mg twice daily for 4 more days Influenza testing was negative Blood cultures are negative for 3 days Cervical spinal stenosis, Cervical disc disease with myelopathy Status post recent C3-4 ACDF with resection of a posterior osteophytic disc complex Continue neck brace. PT evaluation and treatment. DVT prevention Sequential compression devices Patient started on Eliquis, being held at this time for procedure Discharge Planning plan for pacemaker placement per cardiology DC when improved and cleared by cardio Judi Palmer MD May 17, 2017 08:48
[2017-05-17] MEDS ORDERED: ENBREL 50 MG SQ SCH (09:00)
[2017-05-17] MEDS: SODIUM CHLORIDE 0.9% FLUSH 10 ML FLUSH IV FLUSH SCH ×2 (09:00→22:17)
[2017-05-17] MEDS: ASPIRIN EC 81 MG TABEC PO SCH (09:00)
[2017-05-17] MEDS: FOLIC ACID 1 MG TAB PO SCH (09:09)
[2017-05-17] MEDS: sulfaSALAzine 500 MG TAB PO SCH ×2 (09:10→22:25)
[2017-05-17] MEDS: CEFUROXIME AXETIL 500 MG TAB PO SCH ×2 (09:10→22:16)
[2017-05-17] MEDS: guaiFENesin E.R. 600 MG TAB PO SCH ×2 (09:10→22:16)
[2017-05-17] MEDS ORDERED: ONDANSETRON HCL 4 MG/2 ML VIAL IV ONE (12:00)
[2017-05-17] MEDS ORDERED: PROPOFOL 200 MG/20 ML AMP IV ONE (12:00)
[2017-05-17] MEDS ORDERED: ePHEDrine/NS 25 MG/5 ML SYRINGE IV ONE (12:00)
[2017-05-17] MEDS ORDERED: ceFAZolin INJ 1,000 MG in SODIUM CHLORIDE 0.9% INJ 250 ML IV SCH (12:30)
[2017-05-17] MEDS ORDERED: VANCOMYCIN INJ 1,000 MG in SODIUM CHLOR 0.9% 250 ML INJ 250 ML IV SCH (12:30)
[2017-05-17] MEDS ORDERED: MIDAZOLAM HCL 2 MG/2 ML VIAL ONE (13:04)
[2017-05-17] MEDS ORDERED: LIDOCAINE HCL 2% 50 ML VIAL ONE (13:40)
[2017-05-17] MEDS ORDERED: ceFAZolin INJ 1,000 MG VIAL ONE (13:40)
[2017-05-17] MEDS ORDERED: VANCOMYCIN HCL 1000 MG VIAL ONE (13:40)
--- NOTE | 2017-05-17 15:10 | CATHPROC ---
Patient Name: FLAVIA NEAL Study #: [id number] Initial MD: Randal Calderon Date of : 1945 Study Date: 05/17/2017 Cardiac Catheterization Report 05/17/2017 3:09:51 PM Financial #: [id number] 1 of 9 Patient Name: FLAVIA NEAL Study #: [id number] Initial MD: Randal Calderon Date of : 1945 Study Date: 05/17/2017 Entire Case Report Patient Information Patient Name FLAVIA NEAL Date of 1945 Age 71 years Financial # [id number] Gender M AlternateID Lab Number 6 Room Number 508 Height (in) 72.0 Height (cm) 182.9 BSA 2.39 Weight (lbs) 260.7 Weight (kg) 118.5 Patient Address/Phone Number Home Address [facility] Home Phone Number [phone] [place] [address] Study Information Study Number Admission Scheduled Start Study Start [id number] May 12 2017 10:18AM 05/17/2017 May 17 2017 12:47PM [place] [facility] Cardiac Pacer/ICD Admit Source Facility Department Emergency department [facility] - Senior Field Service Engineer Physician and Clinical Staff Initial Randal Blandon Packaging Design Engineer Prabha Solis,ANTIONETTE Packaging Design Engineer Kelsey Aguero,ANTIONETTE Other Anesthesia, AUTOMATION ARCHITECT Recorder Robyn Morel RCIS TECH2 Scrub Aurora Campbell,GRIFFIN TECH2 Procedures Performed Procedure Location (Site) Vessel Name Lead Insertion Venogram Subclav. Vein (Rt) Subclavian Vein 05/17/2017 3:09:51 PM Financial #: [id number] 2 of 9 Patient Name: FLAVIA NEAL Study #: [id number] Initial MD: Randal Calderon Date of : 1945 Study Date: 05/17/2017 Equipment Time Customer Care Team Coach Description Size Mfg Part Number Used/Scraped 14:22 BIOTRONIK LEAD, SOLIA 60 53 PRO MRI * [id number] Used 14:33 BIOTRONIK LEAD, SOLIA S PRO MRI * [id number] Used 14:40 BIOTRONIK PACEMAKER, ELUNA 8 VICKIE DDDR [id number] Used [id number] 13:28 MEDLINE INDUSTRIES SUTURE, STRIP PLUS 1/2" * Used *[id number] 13:28 MEDLINE PACER ADHESIVE, MASTISOL 2/3CC 2/3CC 0523-48 Used 13:28 MEDLINE PACER KAN, LIMB * 2530 *[id number] Used [id number] 13:28 MEDLINE PACER PACK, PACER CUSTOM * Used *[id number] 13:28 MEDLINE PACER PEN, SKIN DUAL W/ RULER * Used *[id number] 14:32 [employer] PACER SAFE SHEATH, FR7, 13CM FR 7 CLS-1007 Used 14:21 [employer] MEDICAL PACER SAFE SHEATH, FR7, 13CM FR 7 CLS-1007 Used 13:48 Needle Sponge Count 2 22 Used 13:48 Needle Sponge Count 30 1 Used 13:48 Needle Sponge Count 4 4 Used 14:43 NYCOMED OMNIPAQUE, 350 MG, 50ML 50ML [id number] Used [id number] *[id number] SUTURE, 3-0 VICRYL [SH] ([id number]) SUTURE, 3-0 VICRYL [SH] ([id number]) SUTURE, 4-0 MONOCRYL [PS2] (Y496G) [id number] 13:28 NANCY MEDICAL BLANKET,WARM AIR CCL * Used *[id number] [facility] PAD, ELECTROSURGICAL 13:28 * [id number] *[id number] Used SURGICAL GROUNDING ORANGE [id number] 13:28 ZOLL MEDICAL ARACELI. / * Used *19367 Equipment Model, Serial, Lot Number and Expiration Data Description Model Number Serial Number Lot Number Expiration Date LEAD, SOLIA 60 53 PRO MRI [id number] 03-08-2019 LEAD, SOLIA S PRO MRI [id number] 03-08-2019 PACEMAKER, ELUNA 8 DR-T [id number] 08-05-2018 05/17/2017 3:09:51 PM Financial #: [id number] 3 of 9 Patient Name: FLAVIA NEAL Study #: [id number] Initial MD: Randal Calderon Date of : 1945 Study Date: 05/17/2017 Insurance Information Insurance Payor Medicare, Private Health Insurance Third Green Party Third Green Party Number MEDICARE A B MCRAB History: Current Medications Medication Dosage/Unit Route Frequency Last Date/Time Taken ASA CARVEDILOL LISINOPRIL NTG SL Ambien Viagra History: Allergies Allergy Reaction No Known Allergies History: Risk Factors Family History of Hypertension Dyslipidemia Previous SD Previous Heart Failure Premature CAD Yes Yes No Yes No Prior Valve Prior PCI Prior PCIDate Prior CABG Surgery No Yes 07/07/2004 No Cerebrovascular Peripheral Artery Chronic Lung On Dialysis Diabetes Disease Disease Disease No No No No No History: Other Current Smoker Method Quit No Cigarettes 17 Years Ago Labs Hgb (g/dl) Hct (%) RBC (MIL/MM3) WBC (l/cumm) Platelets (thousands) 11.60-17.00 35.00-51.00 4.00-5.90 4.00-11.00 150.00-450.00 10.9 33.8 3.5 6.9 153 Glucose (mg/dl) BUN (mg/dl) Creatinine (mg/dl) BUN:Creatinine (1:x) 74.00-106.00 7.00-18.00 0.50-1.30 10.00-20.00 85 14 0.6 23.3 05/17/2017 3:09:51 PM Financial #: [id number] Patient Name: FLAVIA NEAL Study #: [id number] Initial MD: Randal Calderon Date of : 1945 Study Date: 05/18/19 18 Na (meq/l) K (meq/l) Cl (meq/l) CO2 (mmol/L) Ca (mg/dl) 136.00-145.00 3.50-5.10 98.00-107.00 21.00-32.00 8.50-10.10 143 3.4 109 25 8.4 Troponin I (ng/ml) 0.02-0.05 0.02 Medication Medication Total Dose (Bolus/Oral) Medication Total Dosage/Unit 2% XYLOCAINE 50 mL Medications (Bolus/Oral) Medication Time Given Dosage/Unit Administered By Reason 2% XYLOCAINE 05/17/2017 2:12:09 PM 50 mL Randal Calderon 50 mL 2% XYLOCAINE given in lab by Kvng, Randal via Subcutaneous to the right upper chest. Medication (Drip) Medication Time Given Dosage/Unit Concentration/Unit Diluent (ml) Solution ANCEF 05/17/2017 1:46:01 PM 2 g 2 g ANCEF given in lab by Kelsey Aguero RN in Left Hand via Peripheral IV. IV Solutions 05/17/2017 1:28:59 PM 0 mL (IV) 500 NaCl .9 IV Solutions given in lab by Anesthesia, AUTOMATION ARCHITECT in Left Hand via Peripheral IV. Pump/Drip Flow = 20 ml/ hr using NaCl .9. IV Solutions 05/17/2017 1:29:02 PM 0 mL (IV) 500 NaCl .9 IV Solutions given in lab by Anesthesia, AUTOMATION ARCHITECT in Right Antecubital via Peripheral IV. Pump/Drip Flow = 20 ml/hr using NaCl .9. VANCOMYCIN DRIP 05/17/2017 1:49:30 PM 1 g 1 g VANCOMYCIN DRIP given in lab by Anesthesia, AUTOMATION ARCHITECT in Right Antecubital via Peripheral IV. 05/17/2017 3:09:51 PM Financial #: [id number] 5 of 9 Patient Name: FLAVIA NEAL Study #: [id number] Initial MD: Randal Calderon Date of : 1945 Study Date: 05/17/2017 Initial Case Assessment Cardiovascular HR Rhythm NIBP Chest Pain 79 bbb 177/80 0 Neurological State Oriented to time-place- Alert Moves all extremities person Respiration - General Respiration Rate SpO2 (%) (B/min) 12 98 Final Case Assessment Cardiovascular HR Rhythm NIBP 70 paced 130/68 Neurological State Oriented to time-place- Alert Moves all extremities person Respiration - General Respiration Rate SpO2 (%) O2 (lpm) (B/min) 13 99 2 Vitals Summary Pain Time HR NIBP SpO2 Resp Temp EtCO2 Apnea Jeffrey Mon Comment Level 14:22:07 38 99/54 98.0 Chronological Log Time Study Chronological Log 13:24:25 Anesthesia at bedside. VALENTIN Silva Assumes care of patient. 13:24:28 Patient arrived via Bed. 13:24:29 Patient Name, D.O.B, / Armband Verified By R.N. 13:25:39 Consent signed by the physician and the patient and verified by the Senior Field Service Engineer staff. 13:25:40 Pre-op and post- op instructions given; patient acknowledges understanding of instructions. 13:25:44 Patient has been NPO for More than 6Hrs. 13:25:45 Skin Breakdown-none per patient 13:25:51 Brielle Prominences Protected 13:25:58 Presedation assessment performed by Senior Field Service Engineer RN. 13:28:58 A # 22 IV was noted in the Hand (left). Grade = 0 05/17/2017 3:09:51 PM Financial #: [id number] 6 of 9 Patient Name: FLAVIA NEAL Study #: [id number] Initial MD: Randal Calderon Date of : 1945 Study Date: 05/17/2017 13:28:59 IV Solutions given in lab by Anesthesia, AUTOMATION ARCHITECT in Left Hand via Peripheral IV. Pump/Drip Dannie w = 20 ml/hr using NaCl .9. 13:29:00 A # 20 IV was noted in the Antecubital (right). Grade = 0 IV Solutions given in lab by Anesthesia, AUTOMATION ARCHITECT in Right Antecubital via Peripheral IV. Pump/Drip Flow = 20 ml/hr using 13:29:02 NaCl .9. 13:29:03 Disposable Defibrillator Pads Placed On Patient. 13:29:13 Bovie ground pad applied to: left thigh 13:29:17 2% CHLORHEXIDINE GLUCONATE WASH AND NASAL SWIPE DONE PRIOR TO PROCEDURE. 13:32:40 C-collar partially removed per Dr. Fontaine. 13:37:25 History and physical on the chart or being dictated. Assessment: Initial Case, HR=79 BPM, Rhythm=bbb, MSAA=853/80 mmhg, Chest Pain=0 13:37:29 Neurological: State=Alert, Ox3, LEE Respiration: Resp=12 B/min, SpO2=98 % 13:43:47 Right Upper Chest Prepped Times Two and draped after a 3 minute dry time. 13:45:08 LMA placed by VALENTIN Silva 13:46:01 2 g ANCEF given in lab by Kelsey Aguero, RN in Left Hand via Peripheral IV. First Sponge And Instrument Count Done by Aurora Campbell, MIS SPECIALIST TECH2. 13:47:17 Hypo's: 4, Sponges: 30, Bovie/scratch: 2 Sutures: 6, Blades: 2, Instruments: 26, Syveck Patches: 0 Verified by Amarilys Solis RN 13:48:29 Reference ECG taken 13:48:59 Dr Rebolledo arrived to oversee anesthesia care. 13:49:30 1 g VANCOMYCIN DRIP given in lab by Anesthesia, AUTOMATION ARCHITECT in Right Antecubital via Peripheral IV . 13:55:49 MD paged 13:56:49 MD responded 14:06:52 MD arrived. Time Out. Correct patient, procedure, procedure equipment, site and side verified with physicia n present. Time 14:11:54 concurred by MD, individual staff and AUTOMATION ARCHITECT. Time Out #2 - Consents verified, patient in correct position, all results are labled and displa yed, safety precautions 14:11:56 taken, antibiotics administered. Time out concurred by MD, individual staff and AUTOMATION ARCHITECT in procedu re 14:12:08 Case Start 14:12:09 50 mL 2% XYLOCAINE given in lab by Randal Calderon via Subcutaneous to the right upper chest. 14:13:35 Surgical Incision Made. 14:17:57 The Subclav. Vein (Rt) was manually injected with 15 cc's of contrast. OMNIPAQUE, 350 MG, 5 0ML 50ML used. 14:19:24 Vascular access was obtained in the Subclav. Vein (Rt). 14:20:28 Wire inserted 14:20:30 Vascular access was obtained in the Subclav. Vein (Rt). 14:20:32 Wire inserted 14:21:13 A SAFE SHEATH, FR7, 13CM FR 7 was advanced into the Fem Vein (right) using the Percutaneous technique. 14:21:36 A LEAD, SOLIA 60 53 PRO MRI * was inserted and positioned in the RV. 14:22:02 Lead placement verified under fluoroscopy 14:22:07 HR=38 bpm, NIBP=99/54 mmhg, SpO2=98 % 05/17/2017 3:09:51 PM Financial #: [id number] 7 of 9 Patient Name: FLAVIA NEAL Study #: [id number] Initial MD: Randal Calderon Date of : 1945 Study Date: 05/17/2017 14:25:39 Lead placement verified under fluoroscopy 14:25:49 The RV lead impedance and threshold being tested. 14:28:33 The RV lead was sutured to the fascia. 14:31:49 A SAFE SHEATH, FR7, 13CM FR 7 was advanced into the Fem Vein (right) using the Percutaneous technique. 14:32:14 A LEAD, SOLIA S PRO MRI * was inserted and positioned in the RA. 14:34:17 Lead placement verified under fluoroscopy 14:34:19 The Atrial lead impedance and threshold is being tested. 14:38:33 The Atrial lead was sutured to the fascia. 14:40:26 A PACEMAKER, ELUNA 8 DR-T DDDR was connected and placed in the pocket. 14:44:59 Closing the pocket. Second Sponge And Instrument Count Done by Aurora Campbell, MIS SPECIALIST TECH2. 14:45:34 Hypo's: 4, Sponges: 30, Bovie/scratch: 2 Sutures: ~SUTURE~, Blades: 2, Instruments: ~INSTRU~, Syveck Patches: 0 Veriffied by Renetta Meyer 14:46:29 Implant Procedure was performed. 14:46:38 A PPM Implant . (Dual) 14:55:37 The pocket was closed. 14:55:57 Case End 14:56:45 Steri-strips and a sterile dressing applied to site. The Final Sponge And Instrument Count Done by Aurora Campbell, MIS SPECIALIST TECH2. 14:59:15 Hypo's: 4, Sponges: 30, Bovie/scratch: 2 Sutures: 6, Blades: 2, Instruments: 26, Syveck Patches: 0 Verified by Amarilys Solismaster carpenter: Final Case, HR=70 BPM, Rhythm=paced, UQVG=326/68 mmhg 15:00:45 Neurological: State=Alert, Ox3, LEE Respiration: Resp=13 B/min, SpO2=99 %, O2=2 lpm 15:01:14 LMA removed by VALENTIN Silva. 15:04:41 C-collar replaced. 15:06:35 A sling was placed on the affected arm. 15:06:39 PACU called. 15:07:09 No case complications noted. 15:07:10 Cine recording checked. 15:07:12 Bedside Report will be given. 15:07:15 Implantable Device card placed in patient's chart. 15:07:23 Defibrillator and ground pads removed. Skin intact. 15:10:30 Patient moved to bed 15:12:44 Patient transported to PACU. 05/17/2017 3:09:51 PM Financial #: [id number] Patient Name: FLAVIA NEAL Study #: [id number] Initial MD: Randal Calderon Date of : 1945 Study Date: 05/17/2017 End Study - Contrast Media Used In Study Contrast Total Opened (mL) Total Used (mL) Total Wasted (mL) Omnipaque 15 15 0 End Study - Maximum Contrast Load Max Contrast Load (mL) 987.5 End Study - Radiation Exposure Fluoro Time (minutes) 4.7 End Study - Patient Disposition Complications Transferred To Interventional Outcome No Critical Care Bed successful 05/17/2017 3:09:51 PM Financial #: [id number]
[2017-05-17] MEDS ORDERED: traMADol HCL 50 MG TAB PO PRN (15:15)
[2017-05-17] MEDS ORDERED: DO NOT ADM ANY ANTICOAGULANT DRUGS PRN (15:18)
--- NOTE | 2017-05-17 15:24 | MP ---
cc: Randal Calderon MD, Alan S MD DATE OF OPERATION: 05/17/2017 PROCEDURE PERFORMED: Dual chamber permanent pacemaker implantation via the right subclavian vein. INDICATIONS FOR PROCEDURE: Symptomatic second-degree AV block, symptomatic bradycardia. OPERATIVE NOTES: The patient was brought to the operating suite in a fasting state after having signed informed consent. The right upper chest was prepped and draped as per policy and anesthetized with 1% lidocaine. A transverse incision was made inferior to the right clavicle and using blunt dissection, a subcutaneous pocket was formed down through the pectoralis fascia. After administration of dye through a right arm peripheral IV, central venous access was obtained twice without difficulty using modified Seldinger technique. Over the more lateral guidewire, a 7-Northern Irish sheath was placed and through this sheath a ventricular active fixation lead was introduced and its tip positioned in a somewhat septal position where good current of injury, stimulation threshold (0.5 volts) and sensitivity (3.9 millivolts) were demonstrated. This lead was secured into place using 2-0 silk ties down to the pectoralis fascia. Over the remaining guidewire, another 7-Northern Irish sheath was placed and through this sheath, an atrial active fixation lead was introduced and its tip positioned in the right atrial appendage where a good current of injury, stimulation threshold (0.8 volts) and sensitivity (2.7 millivolts) were demonstrated. This lead was secured into place using 2-0 silk ties down to the pectoralis fascia. The leads were then connected to the pacemaker generator which is a Biotronik Eluna device. The leads and the generator were placed into the subcutaneous pocket, which was closed using 3-0 Vicryl interrupted stitches in 2 layers to close the subcutaneous tissue and then 4-0 Monocryl running stitch to close the subcuticular tissue. Overlapping Steri-Strips and a pressure dressing were applied. There were no apparent immediate complications. A portable chest x-ray is pending at the time of this dictation. CONCLUSIONS: Successful dual-chamber permanent pacemaker implantation via the right subclavian vein using a Biotronik Eluna pacemaker generator. OF NOTE: During the case the patient was in sinus bradycardia with second degree AV block. Yesterday the patient was in atrial flutter with a slow ventricular response. MD ELIA Cabral/DARREL , 03:01 PM , 03:23 PM [facility] CENTERConnie
--- NOTE | 2017-05-17 16:34 | RADRPT ---
EXAM DATE/TIME: 05/17/2017 16:44 [place] COMPARISON: No previous studies available for comparison. INDICATIONS : Post op pacemaker placement MEDICAL HISTORY : Cardiovascular disease. SURGICAL HISTORY : Coronary artery stent. ENCOUNTER: Initial ACUITY: 1 day PAIN SCORE: 0/10 LOCATION: Bilateral chest FINDINGS: A single view of the chest demonstrates the lungs to be symmetrically aerated without evidence of mas s, infiltrate or effusion. Pacer on the right. The cardiomediastinal contours are unremarkable. Os seous structures are intact. CONCLUSION: Underated, pacer on the right. William Masterson MD FACR on May 17, 2017 at 16:31 Board Certified Radiologist. This report was verified electronically.
--- NOTE | 2017-05-17 17:27 | MB ---
cc: Salvatore Menendez DO DATE: 05/17/2017 HISTORY OF PRESENT ILLNESS: Mr. Fishman is a pleasant 71-year-old male who was initially admitted to [facility] with generalized weakness and fatigue. He also had a fever of 103.5 at home and was found to be in urinary retention. A catheter was then placed and he was started on Flomax. He was seen by Dr. Tipton in the office and the Flomax was discontinued due to postural hypotension. Since that time, he has been having urinary frequency and urgency. He also was started on hydrocodone for his C3-C4 ACDF, which may have contributed to his urinary retention. 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 PAST MEDICAL HISTORY: Consists of coronary artery disease with history of cardiac stent, arthritis, hypertension, migraine headaches, hyperlipidemia, skin cancer. PAST SURGICAL HISTORY: C3-C4 ACDF, cardiac stent insertion, cholecystectomy, tooth extraction. MEDICATIONS: Please refer to the chart. ALLERGIES: HE HAS NO KNOWN DRUG ALLERGIES. FAMILY HISTORY: Denies any history of prostate cancer. Mother has a history of Alzheimer's disease. SOCIAL HISTORY: Presently, he denies smoking, drinking or using drugs. REVIEW OF SYSTEMS: Notes some urgency, frequency, incomplete bladder emptying recently. No prior history of nocturia or trouble with infection. No history of prostatitis or prostate cancer. Notes recent fever, but presently is afebrile. Denies gait disturbances, bleeding disorders. Denies chest pain, shortness of breath. Denies abdominal pain. Denies skin lesions at present. Denies vision problems. The remaining review of systems reviewed and were negative. PHYSICAL EXAMINATION: VITAL SIGNS: Today, temperature was 98.4, pulse is 43, blood pressure is 195/75, 99% on room air, respiratory rate 18. GENERAL: He is a well-developed, well-nourished, 71-year-old male in no acute distress. HEENT: Head is normocephalic, atraumatic. Pupils equal, round, regular, reactive to light. Extraocular movements intact. NECK: He has got a neck brace in place. The neck is otherwise supple. HEART: Rate, bradycardia is noted. RESPIRATORY: Breath sounds bilaterally. ABDOMEN: Soft, nontender, nondistended. GENITOURINARY: Normal male external genitalia. EXTREMITIES: Show no cyanosis, clubbing or edema. NEUROLOGIC: Cranial nerves 2-12 are intact. LABORATORY DATA: White count 6.9, hemoglobin 10.9, hematocrit 33.8, platelet count 153. Sodium 143, potassium 3.4, chloride 109, CO2 of 25, BUN of 14, creatinine 0.6, glucose of 85. Urinalysis shows few clumps of white cells, 4-9 red cells, multiple white cells. Urine culture shows E. coli, multidrug resistant. 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 Wean narcotics as appropriate. Due to postural hypotension effects from possible Flomax, will hold on this for now. Recommend checking bladder scan to monitor postvoid residuals to make sure he is not going into retention. Would recommend starting perla hahn as an outpatient to help with his voiding symptoms, which will avoid postural hypotension symptoms. Urinary tract infection, continue IV antibiotics and will discharge home on p.o. antibiotics, and he will followup as an outpatient. Thank you for the consult and allowing us to participate in the care of this patient. DO CAROL Reed/DARREL , 04:56 PM , 05:26 PM
[2017-05-17] MEDS: ACETAMINOPHEN 325 MG TAB PO PRN (18:48)
[2017-05-18] VITALS (18 sets, daily range): BP systolic 122–155; BP diastolic 67–80; PULSE 60–84; RESP 16–18; TEMP 97.8–98.3; O2SAT 97–99
[2017-05-18] MEDS: ACETAMINOPHEN 325 MG TAB PO PRN ×2 (00:13→08:35)
[2017-05-18] MEDS ORDERED: VANCOMYCIN INJ 1,000 MG in SODIUM CHLOR 0.9% 250 ML INJ 250 ML IV SCH (04:00)
[2017-05-18] MEDS: CEFUROXIME AXETIL 500 MG TAB PO SCH (08:33)
[2017-05-18] MEDS: ASPIRIN EC 81 MG TABEC PO SCH (08:33)
[2017-05-18] MEDS: SODIUM CHLORIDE 0.9% FLUSH 10 ML FLUSH IV FLUSH SCH (08:33)
[2017-05-18] MEDS: FOLIC ACID 1 MG TAB PO SCH (08:34)
[2017-05-18] MEDS: guaiFENesin E.R. 600 MG TAB PO SCH (08:34)
[2017-05-18] MEDS: sulfaSALAzine 500 MG TAB PO SCH (08:35)
[2017-05-18] MEDS ORDERED: LISINOPRIL 20 MG TAB PO SCH (09:00)
[2017-05-18] MEDS ORDERED: CARVEDILOL 6.25 MG TAB PO SCH (09:00)
--- NOTE | 2017-05-18 09:02 | PD.CARD.PN ---
Subjective Subjective Remarks Mild incisional pain. No angina, dyspnea, dizziness. Objective Medications Item Value Date Time Aspirin 81 mg 05/16/17 0900 (Ecotrin Ec) DAILY/PO 05/18/17 0833 Current Medications Medications (Trade) Dose Ordered Sig/[place] Route Start Time Stop Time Status Last Admin (NS Flush) 2 ml UNSCH PRN IV FLUSH 05/12/17 06:45 (NS Flush) 2 ml BID IV FLUSH 05/12/17 09:00 05/18/17 08:33 (Tylenol) 650 mg Q4H PRN PO 05/12/17 06:45 05/18/17 08:35 (Zofran Inj) 4 mg Q6H PRN IV PUSH 05/12/17 06:45 (Duoneb Neb) 1 ampule Q4HR NEB PRN INH 05/12/17 06:45 05/16/17 21:09 (Folate) 1 mg DAILY PO 05/13/17 09:00 05/18/17 08:34 (Rheumatrex) 17.5 mg Q7D PO 05/13/17 09:00 05/13/17 07:54 (Azulfidine) 1,500 mg BID PO 05/12/17 21:00 05/18/17 08:35 Patient Own Medication PT OWN MED:ENBREL 50MG Q7D SQ 05/17/17 09:00 Future Hold (Mucinex Er) 600 mg BID PO 05/13/17 21:00 05/18/17 08:34 (Leonore 5-325 Mg) 1 tab Q4H PRN PO 05/13/17 10:15 (Ceftin) 500 mg Q12HR PO 05/15/17 21:00 05/18/17 20:59 05/18/17 08:33 (Ecotrin Ec) 81 mg DAILY PO 05/16/17 09:00 05/18/17 08:33 Sodium Chloride 1,000 ml @ 125 mls/hr Q8H IV 05/17/17 07:00 05/17/17 07:00 Cefazolin Sodium 1000 mg/Sodium Chloride 250 ml @ 0 mls/hr UNSCH X1 IV 05/17/17 12:30 05/19/17 12:29 Vancomycin HCl 1000 mg/Sodium Chloride 250 ml @ 0 mls/hr UNSCH X1 IV 05/17/17 12:30 05/19/17 12:29 (Betadine 5% Antisepsis Kit) 1 applic UNSCH X1 TOPICAL 05/16/17 16:15 05/19/17 16:14 (Bactroban Nasal 2% Oint) 1 applic UNSCH X1 EACH NARE 05/16/17 16:15 05/19/17 16:14 (Chlorhexidine 2% Cloth) 1 pack UNSCH X1 TOPICAL 05/16/17 16:15 05/19/17 16:14 Vancomycin HCl 1000 mg/Sodium Chloride 250 ml @ 0 mls/hr ONCE IV 05/18/17 04:00 05/19/17 12:00 (Ultram) 50 mg Q6HR PRN PO 05/17/17 15:15 Miscellaneous Information ALL NURSING DEPARTME... UNSCH PRN .XX 05/17/17 15:18 05/18/17 15:17 Vital Signs / I&O Vital Signs Date Time Temp Pulse Resp B/P (MAP) Pulse Ox O2 Delivery O2 Flow Rate FiO2 05/18/17 07:01 70 05/18/17 06:00 64 05/18/17 05:00 62 05/18/17 04:08 78 05/18/17 04:00 98.0 64 18 155/67 (96) 97 05/18/17 03:00 78 05/18/17 02:00 78 05/18/17 01:00 76 05/18/17 00:13 97.9 69 18 139/70 (93) 97 05/17/17 23:00 70 05/17/17 22:00 68 05/17/17 21:00 72 05/17/17 20:15 99 Nasal Cannula 2.00 05/17/17 20:00 78 05/17/17 19:00 80 05/17/17 18:35 98.1 79 20 146/70 (95) 97 05/17/17 16:29 99 Nasal Cannula 2.00 05/17/17 16:17 98.4 74 17 100 Nasal Cannula 2 05/17/17 16:00 74 17 141/66 (91) 100 Nasal Cannula 2 05/17/17 15:45 73 17 157/77 (103) 100 Nasal Cannula 2 05/17/17 15:30 75 17 159/75 (103) 98 Nasal Cannula 2 05/17/17 15:18 98.4 78 17 156/71 (99) 98 Nasal Cannula 2 05/17/17 12:01 43 05/17/17 12:01 43 195/75 (115) 95 05/17/17 12:00 59 91 05/17/17 12:00 59 05/17/17 11:01 41 18 148/68 (94) 96 05/17/17 11:01 41 05/17/17 10:01 41 9 148/67 (94) 97 05/17/17 10:01 41 05/17/17 10:00 45 9 96 05/17/17 10:00 45 05/17/17 09:01 38 05/17/17 09:01 38 16 138/64 (88) 94 I/O 05/17/17 05/17/17 05/17/17 05/18/17 05/18/17 05/18/17 07:00 15:00 23:00 07:00 15:00 23:00 Intake Total 200 ml 240 ml Output Total 500 ml 50 ml 800 ml Balance -300 ml -50 ml -560 ml Intake Oral 200 ml 240 ml Output Urine Total 500 ml 50 ml 800 ml Stool Total 0 ml # Voids 8 1 8 # Bowel Movements 0 Physical Exam GENERAL: Well developed, well nourished. No acute distress. HEENT: Jugular venous pressure is normal. CHEST: Lungs clear to auscultation anteriorly. CARDIAC: Regular rate and rhythm without S3, S4, or murmur. Pacer site clean, dry, intact, no hematoma or tenderness. ABDOMEN: Soft, nontender, no hepatosplenomegaly. Bowel sounds present. Imaging Last 24 hours Impressions Chest X-Ray 05/17/17 1504 Signed Impressions: Service Date/Time: Wednesday, May 17, 2017 16:44 - CONCLUSION: Underated, pacer on the right. William Masterson MD FACR Assessment and Plan Problem List: (1) Status post placement of cardiac pacemaker ICD Codes: Z95.0 - Presence of cardiac pacemaker Status: Acute Plan: Stable s/p DDD pacemaker implant for symptomatic 2nd degree AV block, symptomatic bradycardia. Pacer site OK. Pacer re-interrogation shows stable, good pacing parameters. OK to discharge home today from cardiac standpoint, 1 week f/u in our office for wound check, 3-4 week f/u with Dr. Benitez. (2) Paroxysmal atrial flutter ICD Codes: I48.92 - Unspecified atrial flutter Status: Acute Plan: Intermittent asymptomatic atrial flutter. Patient's thromboembolic risk probably moderately elevated with his age and history of hypertension. Rec apixaban 5 mg bid starting Monday, daily baby aspirin until then. (3) Hypertension ICD Codes: I10 - Essential (primary) hypertension Status: Chronic Plan: Fluctuating BP's, mostly hypertensive. Rec resume his carvedilol and Lisinopril. (4) Coronary artery disease ICD Codes: I25.10 - Atherosclerotic heart disease of [place] coronary artery without angina pectoris Status: Acute Plan: Stable. No recent angina. Rec resume his beta rahel, [id number]. Continue daily baby aspirin. Code Status full code Discussed Condition With patient Problem Qualifiers (1) Hypertension: Qualified Codes: I10 - Essential (primary) hypertension (2) Coronary artery disease: Qualified Codes: I25.10 - Atherosclerotic heart disease of [place] coronary artery without angina pectoris Randal Calderon MD May 18, 2017 09:02
--- NOTE | 2017-05-18 10:56 | HHI.PR ---
Subjective Remarks up on chair no complinas- voiding well Objective Vitals Vital Signs Date Time Temp Pulse Resp B/P (MAP) Pulse Ox O2 Delivery O2 Flow Rate FiO2 05/18/17 08:00 98.3 73 18 143/80 (101) 99 05/18/17 07:01 70 05/18/17 06:00 64 05/18/17 05:00 62 05/18/17 04:08 78 05/18/17 04:00 98.0 64 18 155/67 (96) 97 05/18/17 03:00 78 05/18/17 02:00 78 05/18/17 01:00 76 05/18/17 00:13 97.9 69 18 139/70 (93) 97 05/17/17 23:00 70 05/17/17 22:00 68 05/17/17 21:00 72 05/17/17 20:15 99 Nasal Cannula 2.00 05/17/17 20:00 78 05/17/17 19:00 80 05/17/17 18:35 98.1 79 20 146/70 (95) 97 05/17/17 16:29 99 Nasal Cannula 2.00 05/17/17 16:17 98.4 74 17 100 Nasal Cannula 2 05/17/17 16:00 74 17 141/66 (91) 100 Nasal Cannula 2 05/17/17 15:45 73 17 157/77 (103) 100 Nasal Cannula 2 05/17/17 15:30 75 17 159/75 (103) 98 Nasal Cannula 2 05/17/17 15:18 98.4 78 17 156/71 (99) 98 Nasal Cannula 2 05/17/17 12:01 43 05/17/17 12:01 43 195/75 (115) 95 05/17/17 12:00 59 91 05/17/17 12:00 59 05/17/17 11:01 41 18 148/68 (94) 96 05/17/17 11:01 41 I/O 05/17/17 05/17/17 05/17/17 05/18/17 05/18/17 05/18/17 07:00 15:00 23:00 07:00 15:00 23:00 Intake Total 200 ml 240 ml Output Total 500 ml 50 ml 800 ml Balance -300 ml -50 ml -560 ml Intake Oral 200 ml 240 ml Output Urine Total 500 ml 50 ml 800 ml Stool Total 0 ml # Voids 8 1 8 # Bowel Movements 0 Result Diagram: 05/15/17 0630 05/16/17 0640 Imaging Last Impressions Chest X-Ray 05/17/17 1504 Signed Impressions: Service Date/Time: Wednesday, May 17, 2017 16:44 - CONCLUSION: Underated, pacer on the right. William Masterson MD FACR Objective Remarks awake and alert, no distress cervical collar in place chest- PM site- no sings of infection regular rhythm abdomen-soft, nontender extremiteis good peripheral pulses neuro exam- unremarkable Procedures 05/17 Dual chamber permanent pacemaker implantation via the right subclavian vein. A/P Problem List: (1) Sepsis ICD Code: A41.9 - Sepsis, unspecified organism Status: Acute (2) Urinary tract infection ICD Code: N39.0 - Urinary tract infection, site not specified Status: Acute (3) Right middle lobe pneumonia ICD Code: J18.1 - Lobar pneumonia, unspecified organism Status: Acute Assessment and Plan 71 years old male S/P PM 05/17 for Atrial flutter with slow ventricular response, 2-1 AV block, right bundle branch block This was initially found incidentally on telemetry, EKG was performed which confirmed diagnosis Discussed with patient's base brander Dr. Benitez who indicated that patient had multiple arrhythmias during his stay in the hospital include right bundle branch block, 2-1 AV block Senior [employer] indicates that the patient will require a pacemaker, request transferred to [facility] for procedure, since procedure cannot be done in [place] Senior Ecologist indicated the patient will require full anticoagulation with Eliquis Per patient's neurosurgery Dr. Fontaine and neurologist Dr. Ashton since patient has had recent MRIs and cervical spine surgery. They both indicate that patient is okay to be placed on full anticoagulation. ASA for now then start Eliquis - this Monday Sepsis, patient met criteria on admission with fever, lactic acidosis, leukocytosis, resolved- e coli UTI Patient was found to have complicated urinary tract infection from difficulty urinating from opiates Chest x-ray also indicated patchy consolidations versus atelectasis in the anterior right middle lobe S/P Rocephin/Zithromax, will discontinue IV antibiotics a currently on Ceftin 500 mg twice daily for 4 more days Influenza testing was negative Blood cultures are negative Cervical spinal stenosis, Cervical disc disease with myelopathy Status post recent C3-4 ACDF with resection of a posterior osteophytic disc complex Continue neck brace. PT evaluation and treatment. resume PT- home health- will ask CM to assist DVT prevention Sequential compression devices Guille Hancock MD May 18, 2017 10:56
[2017-05-18] MEDS ORDERED: DOCUSATE SODIUM 100 MG CAP PO ONE (11:00)
--- NOTE | 2017-05-18 11:56 | HHI.PR ---
Subjective Patient symptoms today Pt seen and examined. Feels well. Voiding with some frequency. Objective Vital Signs Vital Signs Date Time Temp Pulse Resp B/P (MAP) Pulse Ox O2 Delivery O2 Flow Rate FiO2 05/18/17 08:00 98.3 73 18 143/80 (101) 99 05/18/17 07:01 70 05/18/17 06:00 64 05/18/17 05:00 62 05/18/17 04:08 78 05/18/17 04:00 98.0 64 18 155/67 (96) 97 05/18/17 03:00 78 05/18/17 02:00 78 05/18/17 01:00 76 05/18/17 00:13 97.9 69 18 139/70 (93) 97 05/17/17 23:00 70 05/17/17 22:00 68 05/17/17 21:00 72 05/17/17 20:15 99 Nasal Cannula 2.00 05/17/17 20:00 78 05/17/17 19:00 80 05/17/17 18:35 98.1 79 20 146/70 (95) 97 05/17/17 16:29 99 Nasal Cannula 2.00 05/17/17 16:17 98.4 74 17 100 Nasal Cannula 2 05/17/17 16:00 74 17 141/66 (91) 100 Nasal Cannula 2 05/17/17 15:45 73 17 157/77 (103) 100 Nasal Cannula 2 05/17/17 15:30 75 17 159/75 (103) 98 Nasal Cannula 2 05/17/17 15:18 98.4 78 17 156/71 (99) 98 Nasal Cannula 2 05/17/17 12:01 43 05/17/17 12:01 43 195/75 (115) 95 05/17/17 12:00 59 91 05/17/17 12:00 59 Intake & Output 05/18/17 05/18/17 07:00 19:00 Intake Total 240 ml Output Total 800 ml Balance -560 ml Intake Oral 240 ml Output Urine Total 800 ml # Voids 8 Result Diagram: 05/15/17 0630 05/16/17 0640 Imaging Last 24 hours Impressions Chest X-Ray 05/17/17 1504 Signed Impressions: Service Date/Time: Wednesday, May 17, 2017 16:44 - CONCLUSION: Underated, pacer on the right. William Masterson MD FACR Objective Remarks Abd:soft,nt,nd Medications and IVs Current Medications Medications (Trade) Dose Ordered Sig/[place] Route Start Time Stop Time Status Last Admin (NS Flush) 2 ml UNSCH PRN IV FLUSH 05/12/17 06:45 (NS Flush) 2 ml BID IV FLUSH 05/12/17 09:00 05/18/17 08:33 (Tylenol) 650 mg Q4H PRN PO 05/12/17 06:45 05/18/17 08:35 (Zofran Inj) 4 mg Q6H PRN IV PUSH 05/12/17 06:45 (Duoneb Neb) 1 ampule Q4HR NEB PRN INH 05/12/17 06:45 05/16/17 21:09 (Folate) 1 mg DAILY PO 05/13/17 09:00 05/18/17 08:34 (Rheumatrex) 17.5 mg Q7D PO 05/13/17 09:00 05/13/17 07:54 (Azulfidine) 1,500 mg BID PO 05/12/17 21:00 05/18/17 08:35 Patient Own Medication PT OWN MED:ENBREL 50MG Q7D SQ 05/17/17 09:00 Future Hold (Mucinex Er) 600 mg BID PO 05/13/17 21:00 05/18/17 08:34 (Mobile 5-325 Mg) 1 tab Q4H PRN PO 05/13/17 10:15 (Ceftin) 500 mg Q12HR PO 05/15/17 21:00 05/18/17 20:59 05/18/17 08:33 (Ecotrin Ec) 81 mg DAILY PO 05/16/17 09:00 05/18/17 08:33 Sodium Chloride 1,000 ml @ 125 mls/hr Q8H IV 05/17/17 07:00 05/17/17 07:00 Cefazolin Sodium 1000 mg/Sodium Chloride 250 ml @ 0 mls/hr UNSCH X1 IV 05/17/17 12:30 05/19/17 12:29 Vancomycin HCl 1000 mg/Sodium Chloride 250 ml @ 0 mls/hr UNSCH X1 IV 05/17/17 12:30 05/19/17 12:29 (Betadine 5% Antisepsis Kit) 1 applic UNSCH X1 TOPICAL 05/16/17 16:15 05/19/17 16:14 (Bactroban Nasal 2% Oint) 1 applic UNSCH X1 EACH NARE 05/16/17 16:15 05/19/17 16:14 (Chlorhexidine 2% Cloth) 1 pack UNSCH X1 TOPICAL 05/16/17 16:15 05/19/17 16:14 Vancomycin HCl 1000 mg/Sodium Chloride 250 ml @ 0 mls/hr ONCE IV 05/18/17 04:00 05/19/17 12:00 (Ultram) 50 mg Q6HR PRN PO 05/17/17 15:15 Miscellaneous Information ALL NURSING DEPARTME... UNSCH PRN .XX 05/17/17 15:18 05/18/17 15:17 (Coreg) 6.25 mg Q12HR PO 05/18/17 09:00 05/18/17 10:26 (Prinivil) 20 mg DAILY PO 05/18/17 09:00 05/18/17 10:26 Assessment and Plan Assessment and Plan 71 y.o male with UTI and retention Monitor voiding D/C home on Macrobid F/u as outpt one month. Salvatore Menendez DO May 18, 2017 11:56
--- NOTE | 2017-05-18 12:18 | HHI.FF ---
Face to Face Verification Diagnosis: (1) Status post placement of cardiac pacemaker (2) Cervical disc disease with myelopathy Physical Therapy Order: Evaluate and Treat, Improve ambulation Occupational Therapy Order: Evaluate and Treat Home Health Nursing Order: Medical education Signs/symptoms of disease process Bender Machine Operator Order: To Evaluate: Living conditions/environment, Support services I have seen patient Jon Fishman on 05/18/17. My clinical findings support the need for the requested home health care services because: Ltd mobility - disease progression Need for psychosocial assistance s/p recent cervical procedure I certify that my clinical findings support that this patient is homebound because: Post-op weakness Guille Hancock MD May 18, 2017 12:18
[2017-05-18] MEDS ORDERED: ECASA81 PO (12:25)
[2017-05-18 13:46] LABS: CALCIUM 8.7 MG/DL (8.5-10.1); CREATININE 0.75 MG/DL (0.60-1.30)
[2017-05-18] MEDS ORDERED: APIX5TAB PO (15:11)
[2017-05-18] MEDS ORDERED: LEVA500T33 PO (15:12)
[2017-05-18] MEDS ORDERED: ASPI-516 CHEW (15:15)
--- NOTE | 2017-05-18 18:26 | HHI.DS ---
Discharge Summary Admission Date May 12, 2017 at 10:18 Discharge Date: May 18, 2017 Admitting Diagnosis Sepsis, urinary tract infection, right middle lobe pneumonia (1) Sepsis ICD Code: A41.9 - Sepsis, unspecified organism Diagnosis: Principal Status: Acute (2) Urinary tract infection ICD Code: N39.0 - Urinary tract infection, site not specified Diagnosis: Principal Status: Acute (3) Right middle lobe pneumonia ICD Code: J18.1 - Lobar pneumonia, unspecified organism Diagnosis: Principal Status: Acute (4) Status post placement of cardiac pacemaker ICD Code: Z95.0 - Presence of cardiac pacemaker Diagnosis: Principal Status: Acute Procedures 05/17 Dual chamber permanent pacemaker implantation via the right subclavian vein. Brief History - From Admission This is a pleasant 71-year-old male patient with a known medical history of CAD with history of NM and cardiac stent placement, hyperlipidemia, hypertension who presented to the ED with complaints of generalized weakness and fever. Patient with subjective fever 103.5 at home. He states that over the past 2 days he has been increasingly fatigued and generally weak. Supposedly patient presented to the ED last week with hydrocodone induced bladder atony and required catheterization, patient kept the catheter in for 5 days and was last seen with Dr. Tipton on Monday in the office when the Weaver catheter was removed and Flomax was discontinued. Patient states that over the past few days he has been having urinary frequency. Denies any dysuria or flank pain. It should be noted that patient underwent a C3-C4 ACDF with resection of a posterior osteophytic disc complex surgery on 04/24/[address] Fontaine and has been following in his office. CBC/BMP: 05/15/17 0630 05/18/17 1307 Significant Findings Laboratory Tests Test 05/16/17 06:40 05/16/17 12:45 05/18/17 13:07 Calcium Level 8.4 MG/DL (8.5-10.1) Potassium Level 3.4 MEQ/L (3.5-5.1) Chloride Level 109 MEQ/L (98-107) 109 MEQ/L (98-107) Imaging Last Impressions Chest X-Ray 05/17/17 7185 Signed Impressions: Service Date/Time: Wednesday, May 17, 2017 16:44 - CONCLUSION: Underated, pacer on the right. William Masterson MD FACR PE at Discharge awake and alert, no distress cervical collar in place chest- PM site- no sings of infection regular rhythm abdomen-soft, nontender extremiteis good peripheral pulses neuro exam- unremarkable Pt update on day of discharge awake and alert, no chest discomfort up and ambulating good sats Hospital Course 71 years old male S/P PM 05/17 for Atrial flutter with slow ventricular response, 2-1 AV block, right bundle branch block This was initially found incidentally on telemetry, EKG was performed which confirmed diagnosis Discussed with patient's lithographic etcher Dr. Benitez who indicated that patient had multiple arrhythmias during his stay in the hospital include right bundle branch block, 2-1 AV block [employer] indicates that the patient will require a pacemaker, request transferred to [facility] for procedure, since procedure cannot be done in [place] [employer] indicated the patient will require full anticoagulation with Eliquis Per patient's neurosurgery Dr. Fontaine and neurologist Dr. Ashton since patient has had recent MRIs and cervical spine surgery. They both indicate that patient is okay to be placed on full anticoagulation. ASA for now then start Eliquis - this Monday Sepsis, patient met criteria on admission with fever, lactic acidosis, leukocytosis, resolved- e coli UTI Patient was found to have complicated urinary tract infection from difficulty urinating from opiates Chest x-ray also indicated patchy consolidations versus atelectasis in the anterior right middle lobe S/P Rocephin/Zithromax, will discontinue IV antibiotics a currently on Ceftin 500 mg twice daily for 4 more days Influenza testing was negative Blood cultures are negative Cervical spinal stenosis, Cervical disc disease with myelopathy Status post recent C3-4 ACDF with resection of a posterior osteophytic disc complex Continue neck brace. PT evaluation and treatment. resume PT- home health- will ask CM to assist DVT prevention Sequential compression devices Pt Condition on Discharge: Stable Discharge Disposition: Discharge Home Discharge Time: > 30 minutes Discharge Instructions DIET: Follow Instructions for: Heart Healthy Diet Speech Therapy-Diet Recommends: Regular Activities you can perform: Regular-No Restrictions Activities to Avoid: Strenuous Activity Follow up Referrals: Appointment for Follow Up Cardiology Cardiology, Interventional PCP Follow-up PCP Follow-up PCP Follow-up Urology - 6 Weeks with Salvatore Menendez DO New Medications: Apixaban (Eliquis) 5 Mg Tab 5 MG PO BID for Blood Clot Prevention, #60 TAB 11 Refills Aspirin (Aspirin) 81 Mg Chew 81 MG CHEW DAILY for car, #90 TAB 0 Refills Levofloxacin (Levaquin) 500 Mg Tablet 500 MG PO DAILY for Infection, #7 TAB 0 Refills Continued Medications: Acetaminophen (Tylenol) 325 Mg Tab 325-650 MG PO ONCE for Pain Management, #1 TAB 0 Refills Carvedilol (Coreg) 6.25 Mg Tab 6.25 MG PO BID, #60 TAB 0 Refills Etanercept PF Inj (Enbrel PF Inj) 50 mg/ml Syr 50 MG SQ Q7D, #4 SYRINGE 0 Refills Folic Acid (Folic Acid) 1 Mg Tablet 1 TAB PO DAILY Lisinopril (Lisinopril) 20 Mg Tab 20 MG PO HS, #30 TAB 0 Refills Methotrexate (Methotrexate) 2.5 Mg Tab 7 TAB PO Q7D, TAB 0 Refills MONDAY OR MONDAY MORNING Nitroglycerin SL (Nitrostat SL) 0.4 Mg Subl 0.4 MG SL DIRECTED PRN for CHEST PAIN, #100 TAB.SL 0 Refills 1 tablet under the tongue as needed for chest pain. Repeat every 5 minutes for a total of 3 DOSES or call 911 if NO relief. Sildenafil (Viagra) 50 Mg Tab 50 MG PO DAILY PRN for ERECTILE DYSFUNCTION, TAB 0 Refills Sulfasalazine (Sulfasalazine) 500 Mg Tab 1500 MG PO BID, #120 TAB 0 Refills Zolpidem (Ambien) 5 Mg Tab 10 MG PO HS PRN for INSOMNIA, TAB 0 Refills Guille Hancock MD May 18, 2017 18:26
== END 2017-05-18 16:24 | disposition home health service (06) | DRG 871 ==
LOC: PHED 01:41 → PHEDA 06:48 → PH3A 08:00 → OBSVTOIN 10:18 → HIME 05-16 12:10 → HCIS 05-17 13:41
PROVIDERS: ADMIT Internal Medicine; ATTEND Internal Medicine
PROC: 02HK3JZ Insertion of Pacemaker Lead into Right Ventricle, Percutaneous Approach (ICD-10-PCS; 2017-05-17)
PROC: 0JH606Z Insertion of Pacemaker, Dual Chamber into Chest Subcutaneous Tissue and Fascia, Open Approach (ICD-10-PCS; 2017-05-17)
PROC: 02H63JZ Insertion of Pacemaker Lead into Right Atrium, Percutaneous Approach (ICD-10-PCS; principal; 2017-05-17 13:45)
DX: A41.9 Sepsis, unspecified organism (principal); J18.1 Lobar pneumonia, unspecified organism; M50.00 Cervical disc disorder with myelopathy, unspecified cervical region; E87.2 Acidosis; M48.02 Spinal stenosis, cervical region; N31.2 Flaccid neuropathic bladder, not elsewhere classified; I45.2 Bifascicular block; I44.1 Atrioventricular block, second degree; I48.92 Unspecified atrial flutter; N39.0 Urinary tract infection, site not specified; W18.30XA Fall on same level, unspecified, initial encounter; Y93.89 Activity, other specified; Y92.238 Other place in hospital as the place of occurrence of the external cause; Z87.891 Personal history of nicotine dependence; Z95.5 Presence of coronary angioplasty implant and graft; I25.2 Old myocardial infarction; M19.90 Unspecified osteoarthritis, unspecified site; I10 Essential (primary) hypertension; I25.10 Atherosclerotic heart disease of native coronary artery without angina pectoris; Z79.01 Long term (current) use of anticoagulants; R35.0 Frequency of micturition; E78.5 Hyperlipidemia, unspecified; Z85.828 Personal history of other malignant neoplasm of skin; G43.909 Migraine, unspecified, not intractable, without status migrainosus; Z82.0 Family history of epilepsy and other diseases of the nervous system; Z87.442 Personal history of urinary calculi; L40.50 Arthropathic psoriasis, unspecified; K21.9 Gastro-esophageal reflux disease without esophagitis; Z82.49 Family history of ischemic heart disease and other diseases of the circulatory system; I49.5 Sick sinus syndrome; I95.1 Orthostatic hypotension
CPT/HCPCS: 33208; 71045; 71046; 80048; 80053; 81001; 83605; 84484; 85025; 87040; 87077; 87086; 87186; 87641; 87804; 93005; 93306; 94640; 94664; 96361; 96374; 96375; C1785; C1898; J0456; J0690; J0696; J2250; J2405; J3010; J3370; J7030; J7050; J8610

== ENCOUNTER → 2017-08-03 | Outpatient (CLI) | payer MEDICARE, OTHER ==
[~2017-08-03] MED LIST changes: +APIX5TAB PO; +ASPI-516 CHEW; -GLUC15009 PO; -HYDR-3583 PO; +LEVA500T33 PO; -PLAV75TA29 PO; -WALKER WHEELS/F1 MIS
--- NOTE | 2017-08-03 17:58 | RADRPT ---
EXAM DATE: 08/03/2017 3:10 PM EDT AGE/SEX: 71 years / Male INDICATIONS: Myelopathy. CLINICAL DATA: This is the patient's initial encounter. Patient reports that signs and symptoms have been present for 1 day and indicates a pain score of 0/10. MEDICAL/SURGICAL HISTORY: None. Fusion, cervical. Cholecystectomy. Pacemaker. COMPARISON: POI, XR SPINE CERVICAL AP AND LAT, 06/05/2017. . TECHNIQUE: Multiplanar, multisequence MRI examination of the cervical spine was performed without co ntrast. FINDINGS: VERTEBRAE: Postsurgical features of intradiscal with anterior plate and screw fixation at C3-4. Norm al vertebral body height. Homogeneous marrow signal. ALIGNMENT: Loss of normal cervical lordosis. Sagittal alignment is otherwise maintained. CORD: Normal configuration and signal. POST FOSSA: The cerebellar tonsils are normal in position. C2-C3: Moderate bilateral, left greater than right, facet arthropathy. Mild diffuse disc bulge with b ilateral uncovertebral osteophytes. Central canal narrowing to approximately 10r mm. Moderate right a nd severe left neural foraminal narrowing due to facet osteophytes. C3-C4: Anterior fixation. Bilateral facet arthropathy and posterior disc osteophytes. No significant central canal narrowing. Mild right and uygi-ew-ttrabdje left neural foraminal narrowing due to facet osteophytes. C4-C5: Prominent bilateral facet arthropathy with mild posterior disc osteophytes. Severe right and m oderate left neural foraminal narrowing due to facet osteophytes. C5-C6: Diffuse disc bulge with bilateral uncovertebral osteophytes. Mild to moderate bilateral facet arthropathy. Effacement anterior thecal sac with central canal measuring 13 mm. Mild right and mild-t o-moderate left neural foraminal narrowing. C6-C7: Posterior disc osteophytes eccentric to the right with mild bilateral facet arthropathy. Effac ement anterior thecal sac and right anterior lateral recess. Severe right neural foraminal stenosis. C7-T1: No epidural impressions seen. CONCLUSION: 1. Advanced multilevel degenerative spondylosis of the cervical spine with mild central canal narrow ing at C2-3 and in the lower cervical spine. 2. Advanced multilevel facet arthropathy with resultant variable moderate to severe bilateral neura l foraminal narrowing at multiple levels. 3. Right eccentric posterior disc osteophytes at C6-7 with severe right neural foraminal narrowing. 4. Please see above for detailed description of each level. Electronically signed by: Jamie Wallace MD 08/03/2017 5:56 PM EDT
== END ==
LOC: HRAD 12:51
PROVIDERS: ATTEND Neurological Surgery
DX: G95.9 Disease of spinal cord, unspecified (principal)
CPT/HCPCS: 72141

== ENCOUNTER 2018-02-28 11:17 | Observation (INO) ==
[2018-02-28 12:08] LABS: Baso % (Auto) 0.5 % (0.0-2.0); Eos % (Auto) 0.5 % (0.0-4.0); Hematocrit 45.8 % (39.0-51.0); Hemoglobin 15.8 gm/dL (13.0-17.0); Lymph % (Auto) 27.9 % (9.0-44.0); Mean Corpuscular HGB Conc 34.6 % (32.0-36.0); Mean Corpuscular Hemoglobin 34.2 pg (27.0-34.0); Mean Platelet Volume 7.4 fL (7.0-11.0); Mono # (Auto) 0.6 th/mm3 (0.0-0.9); Neut # (Auto) 4.4 th/mm3 (1.8-7.7); Neut % (Auto) 63.1 % (16.0-70.0); Platelet Count 167 th/mm3 (150-450); Red Blood Count 4.62 mil/mm3 (4.50-5.90); Red Cell Distribution Width 13.1 % (11.6-17.2)
[2018-02-28 12:15] LABS: Prothrombin Time 10.2 sec (9.8-11.6)
[2018-02-28] MEDS ORDERED: Chlorhexidine Gluconate 2% 1 Pack (2 Cloths) TOPICAL ONE (12:28)
[2018-02-28] MEDS ORDERED: Metoprolol Tartrate 25 MG Tablet PO ONE (12:28)
[2018-02-28] MEDS ORDERED: Chlorhexidine Gluconate 2% 1 Pack (2 Cloths) TOPICAL SCH (12:30)
[2018-02-28] MEDS ORDERED: Sod Chloride 0.9% Inj 1,000 ML IV.CONT SCH (12:30)
[2018-02-28] MEDS ORDERED: Mupirocin 2% Nasal Oint Topical Syringe EACH NARE SCH (12:30)
[2018-02-28 12:46] LABS: Anion Gap 7 meq/L (5-15); Blood Urea Nitrogen 27 mg/dL (7-18); Carbon Dioxide 27.3 meq/L (21.0-32.0); Chloride 107 meq/L (98-107); Glomerular Filtration Rate Greater Than 89 mL/min (>89); Glucose,Random 87 mg/dL (74-106); Potassium 4.2 meq/L (3.5-5.1); Sodium 141 meq/L (136-145)
[2018-02-28] MEDS ORDERED: Sodium Chlor 0.9% Inj 500 ML IV.SIG SCH (13:00)
[2018-02-28] MEDS ORDERED: ceFAZolin 2 GM Premix Inj 2 GM/50 ML PIGGYBACK IV.SIG SCH (13:00)
[2018-02-28] MEDS ORDERED: Vancomycin Inj 1,000 MG in Sodium Chlor 0.9% Inj 250 ML IV.SIG SCH (13:00)
[2018-02-28] MEDS ORDERED: Sodium Chlor 0.9% Inj 1,000 ML IV.CONT ONE (13:50)
[2018-02-28] MEDS ORDERED: Lidocaine PF 1% Inj 5 ML Syringe OTHER ONE (13:50)
[2018-02-28] MEDS ORDERED: HYDROmorphone PF Inj 1 MG/ML Ampul IV.PUSH PRN (17:03)
--- NOTE | 2018-02-28 17:11 | CATHPROC ---
Patient Name: Jon Fishman Study #: [id number] Initial MD: Randal Calderon Date of : 1945 Study Date: 02/28/2018 Cardiac Catheterization Report 02/28/2018 5:10:53 PM Financial #: [id number] 1 of 11 Patient Name: Jon Fishman Study #: [id number] Initial MD: Randal Calderon Date of : 1945 Study Date: 02/28/2018 Entire Case Report Patient Information Patient Name Jon Fishman Date of 1945 Age 72 years Financial # [id number] Gender M AlternateID Lab Number 6 Room Number DC07 Height (in) 72.0 Height (cm) 182.9 BSA 2.33 Weight (lbs) 247.1 Weight (kg) 112.3 Patient Address/Phone Number Home Address [facility] Home Phone Number [phone] [phone] Study Information Study Number Admission Scheduled Start Study Start [id number] Feb 28 2018 11:17AM 02/28/2018 Feb 28 2018 1:54PM [facility] Study Admit Source Facility Department [facility] - Floor Finisher Physician and Clinical Staff Initial Randal Blandon Management Aide Moises Yen,RT(R) Other Anesthesia, AIR CONDITIONING TECHNICIAN Recorder Kelsey Aguero RN RN Hesher, Sharon, RN Scrub Sunshine Moeller,RT(R) TECH2 Procedures Performed Procedure Location (Site) Vessel Name Lead Insertion Venogram Forearm (right) Extremity Equipment Time [place] Worker Description Size Mfg Part Number Used/Scraped WIRE, HI TORQUE ALLSTAR [id number] 15:20 [employer] 190CM Used 190CM *[id number] WIRE, HI TORQUE ALLSTAR [id number] 15:24 [employer] 190CM Used 190CM *[id number] WIRE, NANYISEZEQUIEL W/HYDROCOAT [id number] 15:47 [employer] 190CM Used 190CM *[id number] 02/28/2018 5:10:53 PM Financial #: [id number] 2 of 11 Patient Name: Jon Fishman Study #: [id number] Initial MD: Randal Calderon Date of : 1945 Study Date: 02/28/2018 [id number] 15:42 ASAHI INTECC WIRE, ASAHI PROWATER 180CM 180CM Used *[id number] 15:07 ASAHI INTECC WIRE, ASAHI PROWATER 180CM 180CM Used *7013799 16:19 BIOTRONIK LEAD, SOLIA 60 53 PRO MRI * 894019 Used WIRE, CHOICE PT EX. SUPPORT [id number] 15:12 [employer] 180CM Used 182CM *[id number] INTRODUCER SET, 14:52 [employer]. FR 5 [id number] *[id number] Used MICROPUNCTURE STIFF WIRE, GUIDE AMPLATZ STIFF S05553 15:53 COOK/PACER 3MMJ Used 180CM *8140305 WIRE, HYDROSTEER 150CM 472343 14:42 DAIG/[employer]. [employer]NA [employer] 150CM Used ANGLED GLIDE *7974901 [id number] 14:03 IMEDICAL PLASMABLADE, PEAD 3.0S * Used *9137338 14:55 MediSharalike WIRE, CONTROL V-18 300CM 43379 *3578594 Used [id number] 14:03 [employer] BLANKET,WARM AIR CCL * Used *5384680 TP-1103 14:03 [employer] SUTURE, STRIP PLUS 1/2" * Used *2081468 14:03 MEDLINE PACER ADHESIVE, MASTISOL 2/3CC 2/3CC 0523-48 Used 14:03 MEDLINE PACER KAN, LIMB * 2530 *6383216 Used [id number] 14:03 MEDLINE PACER PACK, PACER CUSTOM * Used *9876241 [id number] 14:03 MEDLINE PACER PEN, SKIN DUAL W/ RULER * Used *7389569 KM3298 16:05 [employer] MEDICAL 30 ISAIAH INDEFLATOR Used *1859423 16:01 [employer] MEDICAL SHEATH, FR5.5 PRELUDE 11CM FR 5 [id number] Used 14:04 [employer] MEDICAL PACER SAFE SHEATH, FR6, 13CM FR 6 CLS-1006 Used 16:13 [employer] MEDICAL PACER SAFE SHEATH, LONG, FR7, 25CM FR 7 CLS-2507 Used 14:17 Needle Sponge Count 2 22 Used 14:17 Needle Sponge Count 20 200 Used 14:17 Needle Sponge Count 3 3 Used 16:57 Needle Sponge Count 30 1 Used 14:35 NYCOMED OMNIPAQUE, 350 MG, 50ML 50ML [id number] Used [id number] *99076 SUTURE, 3-0 VICRYL [SH] (EXN876E) SUTURE, 3-0 VICRYL [SH] (OAA102O) SUTURE, 4-0 MONOCRYL [PS2] (Y496G) 825996 15:34 [employer] SHEATH, EPS, FR5 FAST CATH FR 5 Used *3422714 WIRE, RUNTHROUGH NS FLOPPY -1011 15:05 [employer] 180CM Used .014 180CM *[id number] 02/28/2018 5:10:53 PM Financial #: [id number] Patient Name: Jon Fishman Study #: [id number] Initial MD: Randal Claderon Date of : 1945 Study Date: 02/28/2018 WIRE, ANGLED STIFF GLIDE .035 15:39 [employer]/VINOD 150CM QZ6976 Used 150CM WIRE, STRIGHT GLIDE STIFF BO3814 15:56 [employer]/VINOD 260CM Used .035 260CM *[id number] [facility], ELECTROSURGICAL 14:03 * E7507 *0015551 Used SURGICAL GROUNDING ORANGE 0102-8044 14:03 [employer] ARACEIL. / * Used *35602 Equipment Model, Serial, Lot Number and Expiration Data Description Model Number Serial Number Lot Number Expiration Date INTRODUCER SET, [id number] 12-27-2020 MICROPUNCTURE STIFF LEAD, SOLIA 60 53 PRO MRI [id number] 12-07-2019 WIRE, CHOICE PT EX. SUPPORT [id number] 10-17-2019 182CM WIRE, CONTROL V-18 300CM [id number] 11-02-2019 Insurance Information Insurance Payor Medicare Third Republican Third Republican Number MEDICARE A B MCRAB History: Allergies Allergy Reaction No Known Allergies hydrocodone BLADDER/BOWEL SHUT DOWN History: Risk Factors Hypertension Dyslipidemia Previous SD Yes Yes Yes Prior PCI Yes Cerebrovascular Peripheral Artery Chronic Lung On Dialysis Diabetes Disease Disease Disease No No No No No Labs Hgb (g/dl) Hct (%) WBC (l/cumm) Platelets (thousands) 11.60-17.00 35.00-51.00 4.00-11.00 150.00-450.00 15.8 45.8 7 167 Glucose (mg/dl) BUN (mg/dl) Creatinine (mg/dl) BUN:Creatinine (1:x) 74.00-106.00 7.00-18.00 0.50-1.30 10.00-20.00 87 27 0.8 33.8 02/28/2018 5:10:53 PM Financial #: [id number] 4 of 11 Patient Name: Jon Fishman Study #: [id number] Initial MD: Randal Calderon Date of : 1945 Study Date: 02/28/2018 Na (meq/l) K (meq/l) 136.00-145.00 3.50-5.10 141 4.2 INR (PTT:PT) 0.90-1.10 1 Medication Medication Total Dose (Bolus/Oral) Medication Total Dosage/Unit 2% XYLOCAINE 50 mL Medications (Bolus/Oral) Medication Time Given Dosage/Unit Administered By Reason 2% XYLOCAINE 02/28/2018 2:26:26 PM 50 mL Randal Calderon 50 mL 2% XYLOCAINE given in lab by Randal Calderon in Right shoulder via Subcutaneous. Ordered by Randal Calderon. Medication (Drip) Medication Time Given Dosage/Unit Concentration/Unit Diluent (ml) Solution ANCEF 02/28/2018 1:56:41 PM 2 g 2 g ANCEF given in lab by VALENTIN Romero via Peripheral IV. Ordered by Randal Calderon. Reason: As per physicians verbal order. IV Solutions 02/28/2018 1:54:36 PM 0 mL (IV) NaCl .9 IV Solutions given in lab by Prabha Solis RN in Left Forearm via Peripheral IV. Pump/Drip Flow = 3 0 ml/hr using NaCl .9. Ordered by Randal Calderon. Reason: As per physicians verbal order. IV Solutions 02/28/2018 1:54:43 PM 0 mL (IV) NaCl .9 IV Solutions given in lab by Prabha Solis RN in Right Forearm via Peripheral IV. Pump/Drip Flow = 30 ml/hr using NaCl .9. Ordered by Randal Calderon. Reason: As per physicians verbal order. VANCOMYCIN DRIP 02/28/2018 1:56:08 PM 1 g 1 g VANCOMYCIN DRIP given in lab by Anesthesia, AIR CONDITIONING TECHNICIAN via Peripheral IV. Ordered by Randal Calderon. Reas on: As per physicians verbal order. 02/28/2018 5:10:53 PM Financial #: [id number] Patient Name: Jon Fishman Study #: [id number] Initial MD: Randal Calderon Date of : 1945 Study Date: 02/28/2018 Initial Case Assessment Cardiovascular HR Rhythm NIBP 60 paced 110/59 Edema Present Skin color Skin None Normal Warm Dry Circulatory - Right Pulses Dorsalis Pedis 1 Scale (0,1,2,3,4,d) Circulatory - Left Pulses Dorsalis Pedis 1 Scale (0,1,2,3,4,d) Circulatory - Lower Extremities Color Lower Right Color Lower Left Normal Normal Neurological State Oriented to time-place- Alert Moves all extremities person Respiration - General Respiration Rate SpO2 (%) (B/min) 16 99 02/28/2018 5:10:53 PM Financial #: [id number] Patient Name: Jon Fishman Study #: [id number] Initial MD: Randal Calderon Date of : 1945 Study Date: 02/28/2018 Final Case Assessment Cardiovascular HR Rhythm NIBP 60 paced 108/58 Edema Present Skin color Skin None Normal Warm Dry Circulatory - Right Pulses Dorsalis Pedis 1 Scale (0,1,2,3,4,d) Scale (0,1,2,3,4,d) Circulatory - Lower Extremities Color Lower Right Color Lower Left Normal Normal Neurological State Oriented to time-place- Alert Moves all extremities person Respiration - General Respiration Rate SpO2 (%) (B/min) 14 96 Chronological Log Time Study Chronological Log 13:54:09 Patient arrived via Bed. 13:54:10 Patient Name, D.O.B, / Armband Verified By R.N. 13:54:10 Consent signed by the physician and the patient and verified by the Floor Finisher staff. 13:54:11 Pre-op and post- op instructions given; patient acknowledges understanding of instructions. 13:54:11 Verbal Stimulation=2 Physical Stimulation=2 Airway=2 Respiration=2 TOTAL=8. (0=absent, 1=li mited, 2=present) 13:54:12 Anesthesia at bedside. Assumes care of patient. 13:54:13 Patient has been NPO for More than 6Hrs. 13:54:15 Skin Breakdown- 13:54:17 Patient Warmer Placed on the Table. 13:54:19 Disposable Defibrillator Pads Placed On Patient. 13:54:22 Brielle Prominences Protected 13:54:25 History and physical is being dictated. 02/28/2018 5:10:53 PM Financial #: [id number] Patient Name: Jon Fishman Study #: [id number] Initial MD: Randal Calderon Date of : 1945 Study Date: 02/28/2018 13:54:27 A # 20 IV was noted in the Forearm (left). Grade = 0 13:54:32 A # 20 IV was noted in the Forearm (right). Grade = 0 IV Solutions given in lab by Prabha Solis RN in Left Forearm via Peripheral IV. Pump/Drip Fl ow = 30 ml/hr using 13:54:36 NaCl .9. Ordered by Randal Calderon. Reason: As per physicians verbal order. IV Solutions given in lab by Prabha Solis RN in Right Forearm via Peripheral IV. Pump/Drip F low = 30 ml/hr using 13:54:43 NaCl .9. Ordered by Randal Calderon. Reason: As per physicians verbal order. 13:55:30 2% CHLORHEXIDINE GLUCONATE WASH AND NASAL SWIPE DONE PRIOR TO PROCEDURE. 13:56:06 MD arrived for anesthesia 1 g VANCOMYCIN DRIP given in lab by VALENTIN Romero via Peripheral IV. Ordered by Randal Calderon . Reason: As per 13:56:08 physicians verbal order. 2 g ANCEF given in lab by VALENTIN Romero via Peripheral IV. Ordered by Randal Calderon. Reason: As per physicians 13:56:41 verbal order. 13:56:45 Bovie ground pad applied to: left thigh Assessment: Initial Case, HR=60 BPM, Rhythm=paced, YONN=341/59 mmhg, Edema=None, Color=Normal, Skin = Warm, Dry Right Pulses: Sebastian Ped=1 Left Pulses: Sebastian Ped=1 14:00:06 Lower Right Extremities: Color=Normal Lower Left Extremities: Color=Normal Neurological: State=Alert, Ox3, LEE Respiration: Resp=16 B/min, SpO2=99 % 14:02:10 Table restraints applied according to hospital policy 14:04:58 Anesthesiologist present for LMA insertion. Dr. Walls 14:05:17 Right Upper Chest Prepped Times Two. DB 14:06:19 Reference ECG taken 14:13:37 A sterile drape was applied after a 3 minute prep drying time. First Sponge And Instrument Count Done by Sunshine Moeller, RT(R) TECH2. 14:14:26 Hypo's: 3, Sponges: 20, Bovie/scratch: 2 Sutures: 6, Blades: 2, Instruments: 26, Syveck Patches: 0 14:16:17 MD paged 14:21:51 MD arrived. Time Out. Correct patient, procedure, procedure equipment, site and side verified with physicia n present. Time 14:25:45 concurred by MD, individual staff and AIR CONDITIONING TECHNICIAN. Time Out #2 - Consents verified, patient in correct position, all results are labled and displa yed, safety precautions 14:26:02 taken, antibiotics administered. Time out concurred by MD, individual staff and AIR CONDITIONING TECHNICIAN in procedu re 14:26:24 Case Start 14:26:26 50 mL 2% XYLOCAINE given in lab by Randal Calderon in Right shoulder via Subcutaneous. Ordered by Randal Calderon. 14:27:49 Surgical Incision Made. 14:27:52 A pocket was created at the R Upper Chest. 14:28:07 Two dry sponges put into the surgical pocket. 14:31:46 A device was explanted. 14:35:56 The Forearm (right) was manually injected with 20 cc's of contrast. OMNIPAQUE, 350 MG, 50ML 50ML used. 14:40:42 Vascular access was obtained in the Subclav. Vein (Lft. 14:41:48 Wire inserted but coils repeatedly at arch. 02/28/2018 5:10:53 PM Financial #: [id number] Patient Name: Jon Fishman Study #: [id number] Initial MD: Randal Calderon Date of : 1945 Study Date: 02/28/2018 14:42:49 The previous wire was exchanged for a WIRE, HYDROSTEER 150CM ANGLED GLIDE 150CM. 14:51:05 Wire removed A INTRODUCER SET, MICROPUNCTURE STIFF FR 5 was advanced into the Subclav. Vein (Lft using the M odified 14:51:48 Seldinger technique. 14:52:04 Wire insertion attempted again with coiling at the same location. 14:55:10 The previous wire was exchanged for a WIRE, CONTROL V-18 300CM. Wire insertion again attempted with coiling at the same location. 14:57:38 14:58:35 The Forearm (right) was manually injected with 20 cc's of contrast. OMNIPAQUE, 350 MG, 50ML 50ML used. 15:05:12 The previous wire was exchanged for a WIRE, RUNTHROUGH NS FLOPPY .014 180CM 180CM. 15:06:46 Called DOCU. Spoke with Sierra. ZAMORA to update pt's . Wire insertion re- attempted with coiling at the same location. 15:08:21 15:08:44 The previous wire was exchanged for a WIRE, ASAHI PROWATER 180CM 180CM. 15:11:21 Wire continues to coil. 15:11:41 The previous wire was exchanged for a WIRE, CHOICE PT EX. SUPPORT 182CM 180CM. 15:19:48 Wire coiling at the same location. 15:20:06 The previous wire was exchanged for a WIRE, HI TORQUE ALLSTAR 190CM 190CM. 15:22:33 Wire continues to coil at same location. 15:22:49 The previous wire was exchanged for a WIRE, HI TORQUE ALLSTAR 190CM 190CM. 15:28:01 Wire insertion again attempted with repeat coiling in the same location. 15:28:26 The previous wire was exchanged for a WIRE, STRIGHT GLIDE STIFF .035 260CM 260CM. A SHEATH, EPS, FR5 FAST CATH FR 5 was exchanged in the Subclav. Vein (Lft. over the glidewire. This was necessary 15:34:24 in order for catheter support. 15:38:58 The previous wire was exchanged for a WIRE, ANGLED STIFF GLIDE .035 150CM 150CM. 15:42:33 Same effect- wire coiling. 15:44:45 The previous wire was exchanged for a WIRE, ASAHI PROWATER 180CM 180CM. 15:44:57 Contacted Interventional radiology- spoke with Dr. Mehta. 15:47:41 Continues to be unable to pass a wire through strictured location. 15:48:09 The previous wire was exchanged for a WIRE, WHISPER W/HYDROCOAT 190CM 190CM. 15:54:16 Still unable to pass a wire across. 15:54:42 The Forearm (right) was manually injected with 20 cc's of contrast. OMNIPAQUE, 350 MG, 50ML 50ML used. 15:54:58 The previous wire was exchanged for a WIRE, GUIDE AMPLATZ STIFF 180CM 3MMJ. 15:56:[address] Mehta here to assist in case. 16:01:15 A 65 cm Edgar guide cath was exchanged over the wire by Dr. Mehta. A SHEATH, FR5.5 PRELUDE 11CM FR 5 was exchanged in the Subclav. Vein (Lft.) by Dr. Mehta. This was necessary in 16:02:42 order for catheter support. GRAPHICS SPECIALIST balloon Dilatation catheter inserted 5F Ref# [id number] exp: 08/11/2019 16:09:19 lot# [id number] 7.0mm X 60mm 75cm 16:13:51 Dr. Mehta was able to pass a wire across using IR equipment. Dr. Mehta out. A SAFE SHEATH, LONG, FR7, 25CM FR 7 was exchanged in the Subclav. Vein (Lft. This was necessary in order for 16:15:14 catheter support. 02/28/2018 5:10:53 PM Financial #: [id number] 9 of 11 Patient Name: Jon Fishman Study #: [id number] Initial MD: Randal Calderon Date of : 1945 Study Date: 02/28/2018 16:15:44 10 amanda humphries added to the table. 16:17:28 A LEAD, SOLIA 60 53 PRO MRI * was inserted and positioned in the RV. 16:20:38 Lead placement verified under fluoroscopy 16:22:06 The original RV lead was attempted to be removed without success. 16:32:30 The original RV lead was capped. 16:36:25 The RV lead impedance and threshold being tested. 16:38:40 The RV lead was sutured to the fascia. 16:41:12 Pocket flushed with antibiotic solution 16:43:18 The device was reinserted into the pocket. Second Sponge And Instrument Count Done by Sunshine Moeller, RT(R) TECH2. 16:55:18 Hypo's: 3, Sponges: 30, Bovie/scratch: 2 Sutures: 6, Blades: 2, Instruments:, Syveck Patches: 0 16:55:29 The pocket was closed. Final Sponge And Instrument Count Done by Sunshine Moeller, RT(R) TECH2. 16:58:59 Hypo's: 3, Sponges: 40, Bovie/scratch: 2 Sutures: 6, Blades: 2, Instruments: 26, Syveck Patches: 0 17:00:00 Case End (Physician broke scrub) 17:00:09 Steri-strips and a sterile dressing applied to site. 17:00:40 Implant Procedure was performed. 17:01:03 A Lead Revision . (Dual) RV lead only 17:03:05 LMA removed by anesthesia and pt placed to supplemental oxygen by [facility]. Assessment: Final Case, HR=60 BPM, Rhythm=paced, JVXN=877/58 mmhg, Edema=None, Color=Normal, Sk in = Warm, Dry Right Pulses: Sebastian Ped=1 17:05:33 Lower Right Extremities: Color=Normal Lower Left Extremities: Color=Normal Neurological: State=Alert, Ox3, LEE Respiration: Resp=14 B/min, SpO2=96 % 17:06:58 No case complications noted. 17:07:02 Cine recording checked. 17:07:04 Holding Area notified of successful intervention. 17:07:10 PACU called. Spoke to Col[place]. 17:07:17 Bedside Report will be given. 17:07:20 Defibrillator and ground pads removed. Skin intact. 17:07:43 A sling was placed on the affected arm. 17:10:54 [facility] supplemental oxygen by [facility] . 02/28/2018 5:10:53 PM Financial #: [id number] Patient Name: Jon Fishman Study #: [id number] Initial MD: Randal Calderon Date of : 1945 Study Date: 02/28/2018 End Study - Contrast Media Used In Study Contrast Total Opened (mL) Total Used (mL) Total Wasted (mL) Omnipaque 350 100 60 40 End Study - Maximum Contrast Load Max Contrast Load (mL) 702.0 End Study - Radiation Exposure Fluoro Time Fluoro Dose (mGy) Cine Dose (uGym2) (minutes) 50.0 416 4069 End Study - Patient Disposition Complications Transferred To Telemetry Bed 02/28/2018 5:10:53 PM Financial #: [id number]
--- NOTE | 2018-02-28 17:58 | MP ---
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 OPERATIVE NOTES: The patient's right ventricular lead was found to be malfunctioning. On a particular internal rotation movement of the patient's right upper extremity, pacemaker output was inhibited, possibly due to right ventricular pacemaker lead noise. This problem was reproducible multiple times, associated with the patient experiencing lightheadedness. Therefore, it was decided to place a new right ventricular pacemaker lead. The right upper chest was prepped and draped as per policy and anesthetized with 1% lidocaine. A transverse incision was made over the preexisting generator using a PlasmaBlade, and the generator freed from the subcutaneous pocket. After administration of contrast through a right arm peripheral IV, central venous access was obtained via the right subclavian vein. We were unable to advance the guidewire past a medial region in the superior vena cava. We decided to remove the guidewire and used a micropuncture kit. Central venous access was obtained, again without difficulty. The micropuncture sheath was placed. This sheath was then exchanged for a 5-[place]ese dilator. Through this dilator we tried numerous wires, including Prowater, All Star, Choice PT, Whisper wire, Glidewire, stiff Glidewire, Amplatz Super Stiff, V-18 wire, all of which would not traverse what appears to be a stenosed region near the origin of the right subclavian vein. At this point, we consulted Dr. Joaquim Mehta from Interventional Radiology. Dr. Mehta placed a 5-[place] sheath and through this sheath, in combination with a hockey stick catheter, he was able to advance a Roadrunner guidewire through the stenosis, and the tip of the wire positioned in the inferior vena cava. Angiography at this point shows a very tight lesion in the origin of the right subclavian vein. A 7.0 mm Pilot Safety Inspector balloon catheter was advanced to this lesion and inflated to approximately 7 atmospheres. Angiography now shows a much more patent vein. The 5-[place] sheath was then exchanged for a long 7-[place] sheath. Through the sheath, a right ventricular active fixation lead was introduced and its tip positioned in the septal region where good current of injury, stimulation threshold (0.8 volts) were demonstrated. Sensitivity was not measured as the patient is completely pacemaker dependent with no underlying rhythm. Impedance was stable at 702 ohms. The atrial lead was also checked and found to be functioning normally. The ventricular lead was connected to the pacemaker generator, which is a Biotronik device. We did try briefly to retract the old ventricular lead without success. It was capped and placed behind the generator. The pocket was closed using 3-0 Vicryl interrupted stitches in 3 layers to close the subcutaneous tissue and then 4-0 Monocryl running stitch to close the subcuticular tissue. Overlapping Steri-Strips and a pressure dressing were applied. There were no apparent immediate complications. A portable chest x-ray is pending at the time of this dictation. CONCLUSIONS: 1. Status post very difficult placement of a new right ventricular pacemaker lead. 2. 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 MD ELIA Cabral/santhosh , 05:00 PM , 05:12 PM ESTER
--- NOTE | 2018-02-28 18:07 | XR ---
EXAM DATE: 02/28/2018 6:01 PM EST AGE/SEX: 72 years / Male INDICATIONS: Status post new lead placement for pacemaker. CLINICAL DATA: This is the patient's subsequent encounter. Patient reports that signs and symptoms h ave been present for 1 day and indicates a pain score of Nonresponsive. MEDICAL/SURGICAL HISTORY: Cardiovascular disease. Pacemaker. Coronary artery stent. COMPARISON: [facility] – [place], CHEST SINGLE AP, 05/17/2017. . FINDINGS: No infiltrate, effusion or pneumothorax demonstrated. Trace left base atelectasis noted. There is a right subclavian transvenous cardiac pacer. 3 lesions are now present, previously 2. The n ew lead is probably in the coronary sinus. The old leads are in the right atrium and right ventricula r apex region. CONCLUSION: New bleed of the cardiac pacer as described. No pneumothorax or other acute complication demonstrated . Trace left base atelectasis noted. Electronically signed by: Stanislaw Padilla MD Board Certified Radiologist 02/28/2018 6:06 PM EST
--- NOTE | 2018-02-28 18:10 | ECG ---
Date Performed: 02/28/2018 Time Performed: 11:37:38 PTAGE: 72 years EKG: Sinus rhythm . Left axis deviation RBBB with left anterior fascicular block Inferior infarct - age undetermined Po ssible anterior infarct - age undetermined Lateral T wave changes are nonspecific Abnormal ECG PREVIOUS TRACING : 05/15/2017 15.36 DOCTOR: Rj Bergeron Interpretating Date/Time 02/28/2018 18:09:11
[2018-02-28] MEDS: Carvedilol 6.25 MG Tablet PO SCH (20:41)
[2018-03-01] MEDS ORDERED: Zolpidem Tartrate 5 MG Tablet PO PRN (01:18)
[2018-03-01] MEDS ORDERED: Vancomycin Inj 1,700 MG in Sodium Chlor 0.9% Inj 500 ML IV.SIG SCH (02:00)
[2018-03-01] MEDS: sulfaSALAzine EC 500 MG Tablet PO SCH ×2 (05:27→09:18)
[2018-03-01 08:08] VITALS: RESP 18; O2SAT 98
[2018-03-01] MEDS ORDERED: Lisinopril 20 MG Tablet PO SCH (09:00)
[2018-03-01] MEDS: Carvedilol 6.25 MG Tablet PO SCH (09:18)
[2018-03-01 12:08] VITALS: BP 122/64; PULSE 72; TEMP 98.2
--- NOTE | 2018-03-02 17:01 | IR ---
EXAM DATE: 03/02/2018 2:59 PM EST AGE/SEX: 72 years / Male INDICATIONS: Patient presents with stenosis pf the Brachiocephalic vein/SVC in need of a Venogram w ith possible interventions. CLINICAL DATA: This is the patient's initial encounter. Patient reports that signs and symptoms have been present for 1 day and indicates a pain score of Nonresponsive. MEDICAL/SURGICAL HISTORY: Gastroesophageal reflux disease. Hypertension. Atrial Flutter, Coron silviano Artery Disease, Chronic Kidney Disease stage III, History of Skin Cancer, Pacemaker. COMPARISON: No prior exams available for comparison. IMAGE SERIES: 0 RADIATION DOSE: ACCESS SITE: DEVICE(S): Right brachiocephalic vein BAGGAGE CHECKER Balloon 7.0mm x 60mm 75cm Mail Handler OTW . . PROCEDURE : 1. Venogram. 2. Right brachiocephalic balloon angioplasty. The risks, benefits and alternatives to the procedure were explained and verbal and written consent w as obtained. The site was prepped in sterile fashion. Full sterile technique was used, including ca p, mask, sterile gloves and gown and a large sterile sheet. Hand hygiene and 2% chlorhexidine and/or betadine/alcohol prep was utilized per protocol for cutaneous antisepsis. Sterile gel and sterile p robe cover were utilized for ultrasound guidance. The skin and subcutaneous tissues were infiltrated with local anesthetic solution. Was called to the cardiac angiography suite for difficulty traversing a central venous stenosis. Acce ss was obtained by the cardiology department. Contrast injection demonstrated a high-grade stenosis a t the junction of the right subclavian and brachiocephalic vein. With a hockey-stick catheter and Zhao drunner wire, the stenosis was successfully traversed and the wire advanced down into the IVC. 7 mm b alloon angioplasty was performed across the stenosis with anabaptist of venous patency. CONCLUSION: 1. 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 2. Stenosis was successfully traversed and balloon angioplastied to 7 mm as detailed above to facili mckoy lead revision. Electronically signed by: Joaquim Mehta MD Board Certified Radiologist 03/02/2018 4:59 PM EST
--- NOTE | 2018-03-07 07:31 | MH ---
cc: Randal Calderon MD DATE OF ADMISSION: 02/28/2018 HISTORY OF PRESENT ILLNESS: The patient is a 72-year-old white male, followed in our office by Dr. Kike Benitez, with a history of coronary artery disease, psoriatic arthritis, hyperlipidemia, hypertension, pancreatitis, pacemaker implant in 2017 for symptomatic bradycardia, paroxysmal atrial flutter, who is now admitted for placement of a new right ventricular pacemaker lead. Recently, the patient has been having episodic lightheadedness. Interrogation of his pacemaker shows episodes of right ventricular lead noise which has been inhibiting the pacemaker output resulting in prolonged pauses. PAST MEDICAL HISTORY: 1. Pancreatitis, 04/2015. 2. Coronary artery disease, status post ST-elevation myocardial infarction and stent of the left circumflex 2005. 3. Psoriatic arthritis. 4. Hyperlipidemia. 5. Hypertension. 6. Paroxysmal atrial flutter. 7. Dual-chamber permanent pacemaker implant, 05/17/2017 due to symptomatic bradycardia. CARDIAC MEDICATIONS: 1. Coreg 6.25 mg b.i.d. 1. Eliquis 5 mg b.i.d. 2. Lisinopril 20 mg daily. 3. Aspirin 81 mg daily. 4. Crestor 20 mg daily. ALLERGIES: HYDROCODONE. FAMILY HISTORY: Noncontributory. SOCIAL HISTORY: The patient is a former smoker. There is no history of alcohol abuse. REVIEW OF SYSTEMS: As in the history of present illness, otherwise negative or noncontributory. PHYSICAL EXAMINATION: VITAL SIGNS: Blood pressure 130/70 with a pulse of 60, respirations 15. GENERAL: He is a well-developed, well-nourished white male, in no acute distress. NECK: Jugular venous pressure is normal. Carotid pulses are 2+ bilaterally and without bruits. CHEST: Clear lungs potts. CARDIAC: He has a regular rhythm and rate without S3, S4, or murmur. ABDOMEN: He has a soft, nontender abdomen. Bowel sounds are present. There is no definite hepatosplenomegaly. EXTREMITIES: No clubbing, cyanosis, or edema. IMPRESSION: Malfunctioning right ventricular pacemaker lead in a 72-year-old white male with a history of pacemaker implant in 05/2017, history of coronary artery disease, psoriatic arthritis, hyperlipidemia, hypertension. The patient has been recommended placement of a new ventricular lead. The nature of this procedure and potential risks including but not limited to cardiac perforation, pneumothorax, bleeding, infection have been outlined to the patient. He agrees to proceed. PLAN: Placement of a new right ventricular pacemaker lead on 02/28/2018. Randal Calderon MD GHRenetta/melissa , 05:54 PM , 06:03 PM [facility]
== END 2018-03-01 14:59 | disposition home or self-care (01) ==
LOC: HSDI 11:17 → HCAT 11:17 → HDIC 11:19 → HCIS 18:38
PROVIDERS: ADMIT Internal Medicine Cardiovascular Disease; ATTEND Internal Medicine Cardiovascular Disease
PROC: LEADREV (ICD-10-PCS; 2018-02-28 13:45)
CPT/HCPCS: 33216; 33217; 33249; 37222; 37248; 71010; 71045; 80048; 85025; 85610; 90774; 93005; 96374; C1725; C1769; C1779; C1887; C1898; G0297; G0298; G0299; G0378; J0690; J1100; J2250; J2405; J2704; J3370; J7030; J7040; J7050